=== PATIENT | male | born 1950 | race Caucasian/White ===

== ENCOUNTER → 2017-10-28 | Outpatient (CLI) | payer OTHER, BC | LOC: FCPNEURO 23:41 | PROVIDERS: ATTEND Student in an Organized Health Care Education/Training Program | DX: G47.33 Obstructive sleep apnea (adult) (pediatric) (principal) ==

== ENCOUNTER → 2017-12-02 | Outpatient (CLI) | payer OTHER, BC | LOC: BHFA 13:00 | PROVIDERS: ATTEND Internal Medicine Cardiovascular Disease | DX: R00.2 Palpitations (principal); I25.10 Atherosclerotic heart disease of native coronary artery without angina pectoris ==

== ENCOUNTER → 2017-12-12 | Outpatient (CLI) | payer OTHER, BC | LOC: BHFA 08:30 | PROVIDERS: ATTEND Internal Medicine Cardiovascular Disease | DX: I25.10 Atherosclerotic heart disease of native coronary artery without angina pectoris (principal) ==

== ENCOUNTER → 2017-12-18 | Outpatient (CLI) | payer OTHER, BC | LOC: BHFA 14:00 | PROVIDERS: ATTEND Internal Medicine Cardiovascular Disease | DX: I25.10 Atherosclerotic heart disease of native coronary artery without angina pectoris (principal) | CPT/HCPCS: 78452; 93017; A9500; J2785 ==

== ENCOUNTER → 2018-01-10 | Day surgery (SDC) | payer OTHER, BC ==
[~2018-01-10] MED LIST: ASPIRIN EC 325 MG TAB PO ONE; ATROPINE SULFATE 1 MG/10 ML SYR IVP PRN; DIAZEPAM 5 MG TAB PO ONE; FAMOTIDINE 20 MG TAB PO ONE; HYDROCODONE/APAP 5/325 TAB PO PRN; IOPAMIDOL (ISOVUE-370) 150 ML BTL IV ONE; LIDOCAINE 1% 300 MG/30 ML SDV ONE; MIDAZOLAM 2 MG/2 ML VIAL ONE; NITROGLYCERIN 0.4 MG BTL SL PRN; NS 1,000 ML IV ONE; ONDANSETRON 4 MG/2 ML VIAL IVP PRN; OXYCODONE/APAP 5/325 TAB PO PRN; diphenhydrAMINE 25 MG CAP PO ONE; fentaNYL 100 MCG/2 ML INJ ONE
[2018-01-10 07:14] LABS: PLATELET COUNT 238 10^3/uL (150-400)
--- NOTE | 2018-01-10 07:18 | PDHPUP ---
History & Physical Update H&P update statement: This history and physical update is based on an assessment of the patient which was completed after admission or registration (within 24 hours), but prior to the surgery/procedure. H&P update: H&P reviewed & patient examined, no change in patient's condition since H&P completed
--- NOTE | 2018-01-10 07:18 | PDPROPOC ---
Sedation Plan of Care Sedation Plan of Care: mental status noted, patient educated of risks, benefits , alternatives, patient can tolerate sedation ASA Classification: ASA 2 Planned drugs: fentanyl, midazolam Mallampati Score: Class 2 Mallampati Reference Image: Patient passed 3-3-2 rule?: Yes
[2018-01-10 07:22] LABS: INR 1.02 (0.83-1.16); PROTIME(PATIENT) 13.6 SEC (12.0-15.0)
--- NOTE | 2018-01-10 09:18 | CPIP ---
[f rep st] INVASIVE CARDIAC PROCEDURE DATE OF PROCEDURE: 01/10/2018 INDICATION FOR PROCEDURE: Positive stress test. PROCEDURE: 1. Nonselective right groin sheathogram. 2. Bilateral selective coronary angiography. 3. Left heart catheterization. 4. Left ventriculogram. 5. Right groin closure with 6-Irish Angio-Seal. INDICATION: Briefly, this is a 67-year-old male with a history of prior PCI with numerous stents pete gia. Patient had an outpatient stress test which showed a reduced ejection fraction, which was diffe rent from his baseline echocardiogram. Given the patient's history of multiple recent stents as well as a stress test showing reduced ejection fraction, we decided to proceed with left heart catheteriz ation to make sure his underlying coronary vasculature is patent. DESCRIPTION OF PROCEDURE: After informed consent, patient was brought to [facility] where the right groin w as prepped and draped in sterile fashion. Using local lidocaine, a short 6-Irish sheath was introdu gia in the right common femoral artery, verified angiographically. Through the 6-Irish sheath, the JL4 catheter was advanced to the left coronary artery. Images of the left coronary artery revealed s hort left main. There was a large marginal 1 coming off proximally, which had tubular 50% disease pr oximally, but it was widely patent distally. The circumflex artery proper had extensive stenting in the midbody, which appeared to be widely patent, and terminated into a marginal 2 artery, which was w idely patent with only mild 30% to 40% disease after the stented area. The LAD was stented in its mi dportion, and the stents appeared to be widely patent. The distal LAD appeared to be patent as well. The stent in the proximal LAD appeared to be widely patent. Distally, the LAD appeared to be widel y patent. There appeared to be numerous small diagonal arteries coming off the LAD, which were widel y patent. After these images were obtained, the JL4 catheter was removed. A JR4 catheter was advanced to the right coronary artery. Images of the right coronary artery reveal ed normal os, prox, mid RCA. There was a stent in what appeared to be the RPDA, which appeared to be widely patent. After these images were obtained, the JR4 catheter was removed over the 0.035 wire. A pigtail catheter was advanced in the left ventricle. EDP was 15 mmHg. Left ventriculogram in the IVEY projection showed EF of 50% with evidence of LVH. There was no pullback gradient between the LV and aorta. Pigtail catheter was removed over the 0.035 wire. Right groin was closed with 6-Irish Angio-Seal after changing out for an Amplatz Super Stiff wire over JR4 catheter. Patient tolerated t he procedure well. No complications. IMPRESSION: 1. Patent stents in the left anterior descending, circumflex, and right coronary arteries with moder ate disease in a marginal 1 artery. 2. Low normal ejection fraction with evidence of left ventricular hypertrophy. PLAN: The patient's coronary disease appears to be stable with patent stents. Additionally, his eje ction fraction appears to be stable as well with evidence of LVH. We will continue with aggressive r isk factor modification at this point, i.e., sleep apnea treatment, blood pressure control, as well a s aggressive weight loss regimen with exercise. Will follow up in the office in 1 week's time. /[id number]/MODL
--- NOTE | 2018-01-12 06:21 | CPEKG ---
Heart Rate: 67 RR Interval: 896 P-R Interval: 180 QRSD Interval: 162 QT Interval: 468 QTC Interval: 494 P [place]: 35 QRS [place]: -20 T Wave [place]: 133 EKG Severity - ABNORMAL ECG - EKG Impression: SINUS RHYTHM EKG Impression: LEFT BUNDLE BRANCH BLOCK Electronically Signed By: Van Rizvi 12-Jan-2018 06:20:58
== END | disposition home or self-care (01) ==
LOC: FCATH 06:24
PROVIDERS: ATTEND Internal Medicine Cardiovascular Disease
PROC: 4A023N7 Measurement of Cardiac Sampling and Pressure, Left Heart, Percutaneous Approach (ICD-10-PCS; principal; 2018-01-10)
PROC: B2151ZZ Fluoroscopy of Left Heart using Low Osmolar Contrast (ICD-10-PCS; principal; 2018-01-10)
PROC: B2111ZZ Fluoroscopy of Multiple Coronary Arteries using Low Osmolar Contrast (ICD-10-PCS; principal; 2018-01-10)
DX: I25.10 Atherosclerotic heart disease of native coronary artery without angina pectoris (principal); R94.39 Abnormal result of other cardiovascular function study; R06.00 Dyspnea, unspecified; R00.2 Palpitations; I10 Essential (primary) hypertension; G47.33 Obstructive sleep apnea (adult) (pediatric); I44.7 Left bundle-branch block, unspecified; E11.9 Type 2 diabetes mellitus without complications; N40.0 Benign prostatic hyperplasia without lower urinary tract symptoms; I25.2 Old myocardial infarction; E78.5 Hyperlipidemia, unspecified; E66.01 Morbid (severe) obesity due to excess calories; Z68.41 Body mass index [BMI] 40.0-44.9, adult; Z79.82 Long term (current) use of aspirin; Z79.84 Long term (current) use of oral hypoglycemic drugs; Z82.49 Family history of ischemic heart disease and other diseases of the circulatory system; Z95.5 Presence of coronary angioplasty implant and graft
CPT/HCPCS: C1760; C1769; J1644; J2250; J3010; Q9967

== ENCOUNTER 2018-04-12 15:58 | Emergency (ER) | payer OTHER, BC ==
--- NOTE | 2018-04-12 16:28 | CPEKG ---
Heart Rate: 93 RR Interval: 645 P-R Interval: 196 QRSD Interval: 162 QT Interval: 404 QTC Interval: 503 P [place]: 65 QRS [place]: -8 T Wave [place]: 102 EKG Severity - ABNORMAL ECG - EKG Impression: SINUS RHYTHM EKG Impression: LEFT BUNDLE BRANCH BLOCK Electronically Signed By: Freddie Isbell 12-Apr-2018 17:30:39
--- NOTE | 2018-04-12 16:35 | EDPHY ---
H & P Time Seen by Provider: 04/12/18 16:19 HPI/ROS: Chief complaint. Nausea, dizziness HPI. 67-year-old male presents emergency department with chills that started this morning at about 5:00 a.m.. He was dizzy and nauseated. He had a near syncopal episode. Had some dry heaves. However no chest discomfort or shortness of breath. His abdomen is somewhat distended and tender all over but no diarrhea. No fever as he is aware. No upper respiratory symptoms. The patient checked his blood sugar and found to be 101 and his blood pressure was okay. Continues to have abdominal discomfort. ROS Constitutional. Chills Eyes. no problems with vision ENT. no sore throat, no nasal drainage Cardiovascular. no chest pain Respiratory. no shortness of breath, no cough Abdominal. Abdominal pain with nausea and dry heaves . no problems urinating MS. no calf pain/swelling, no neck/back pain, no joint pain Skin. no rash Lymph. no swollen glands Neuro. Dizziness and near syncope Past Medical/Surgical History: Past medical history is significant for hypertension, AFib, insulin-dependent diabetes, [place] November 2017, dyslipidemia, obesity Social History: , nonsmoker, no alcohol Smoking Status: Never smoked Physical Exam: General Appearance: Alert well-developed male mild distress vital signs the are stable Eyes: Pupils equal and round no pallor or injection. ENT, Mouth: Mucous membranes are moist. Respiratory: There are no retractions, lungs are clear to auscultation. Cardiovascular: Regular rate and rhythm. Gastrointestinal: Abdomen is soft with diffuse tenderness. No masses, normal bowel sounds Neurological: Awake and alert, sensory and motor exams grossly normal. Skin: Warm and dry, no rashes. Musculoskeletal: Neck is supple nontender. Extremities symmetrical, full range of motion. Psychiatric: Patient is oriented X 3, there is no agitation. Constitutional: Initial Vital Signs Temperature (C) 37.0 C 04/12/18 16:03 Heart Rate 93 04/12/18 16:03 Respiratory Rate 20 04/12/18 16:03 Blood Pressure 146/73 H 04/12/18 16:03 O2 Sat (%) 91 L 04/12/18 16:03 O2 Delivery Mode Room Air O2 (L/minute) 3 Allergies/Adverse Reactions: No Known Allergies Allergy (Unverified 12/25/17 11:07) Home Medications: Medication Instructions Recorded Aspirin [Aspirin 81mg (*)] 81 mg PO DAILY 12/25/17 Atorvastatin Calcium [Lipitor 40 80 mg PO DAILY 12/25/17 mg (*)] Clopidogrel Bisulfate [Plavix (*)] 75 mg PO DAILY 12/25/17 Insulin Aspart [Novolog Flexpen] 0 unit SQ TIDMEAL 12/25/17 Insulin Detemir [Levemir] 60 unit SQ DAILY 12/25/17 Losartan Potassium [Cozaar 50 mg 100 mg PO DAILY 12/25/17 (*)] Metoprolol Tartrate [Lopressor 100 100 mg PO BID 12/25/17 mg (*)] Sertraline HCl [Zoloft 100mg (*)] 100 mg PO DAILY 12/25/17 Spironolactone [Aldactone 25 MG 100 mg PO DAILY 12/25/17 (*)] metFORMIN HCL [Glucophage 500 mg 500 mg PO BIDMEAL 12/25/17 (*)] Medical Decision Making - Diagnostics EKG Interpretation: EKG interpreted by me shows normal sinus rhythm normal interval. Left bundle branch block. QRS shows interventricular conduction delay. ST depression in V6. Rate is 93. Otherwise no significant change from previous EKG December 2017 . No arrhythmia. No change Imaging Results: Imaging Impressions Chest X-Ray 04/12/18 16:38 Impression: Query airways disease. Abdomen CT 04/12/18 17:10 Impression: 1. 3.3 cm suspicious solid lesion of the left kidney. Additional rounded areas of low attenuation in the left kidney are probably cysts. Urologic consultation is recommended for consideration of further evaluation. 2. See above report for additional findings. Results called and discussed with JAYLAN OCHOA M.D. on 04/12/2018 at 18:42 Chest x-ray interpreted by me shows no evidence for pneumonia CT abdomen pelvis with IV contrast shows normal gallbladder, appendix. No diverticulosis. No source for abdominal pain. He has an incidental finding of a 3.3 cm mass in the left kidney that needs further evaluation. Procedures: IV normal saline, monitor. Zofran for nausea ED Course/Re-evaluation: Re-evaluation 6:40 p.m.--patient is stable and he feels much better. The patient and I discussed imaging and lab an EKG results. We discussed treatment plan including criteria for return importance of follow-up further evaluation. He expresses understanding and agreement We discussed incidental finding of mass in the left kidney. I consulted discussed case with Dr. Rod Morales for Urology who will see the patient in the office this coming week. Differential Diagnosis: This may be gastroenteritis. There is no acute findings for explanation of abdominal pain and nausea. Does have an elevated white count but normal gallbladder and appendix and no evidence for diverticulosis or bowel obstruction. There is an incidental finding of probable cancerous mass in the left kidney - Data Points Laboratory Results: Laboratory Results 04/12/18 16:00 04/12/18 16:00 04/12/18 04/12/18 04/12/18 16:00 16:00 14:30 WBC 15.05 10^3/uL H 10^3/uL (3.80-9.50) RBC 5.56 10^6/uL 10^6/uL (4.40-6.38) Hgb 16.1 g/dL g/dL (13.7-17.5) Hct 47.4 % % (40.0-51.0) MCV 85.3 fL fL (81.5-99.8) MCH 29.0 pg pg (27.9-34.1) MCHC 34.0 g/dL g/dL (32.4-36.7) RDW 13.3 % % (11.5-15.2) Plt Count 165 10^3/uL 10^3/uL (150-400) MPV 9.5 fL fL (8.7-11.7) Neut % (Auto) 89.8 % H % (39.3-74.2) Lymph % (Auto) 3.4 % L % (15.0-45.0) [place] % (Auto) 5.8 % % (4.5-13.0) Eos % (Auto) 0.2 % L % (0.6-7.6) Baso % (Auto) 0.3 % % (0.3-1.7) Nucleat RBC Rel Count 0.0 % % (0.0-0.2) Absolute Neuts (auto) 13.51 10^3/uL H 10^3/uL (1.70-6.50) Absolute Lymphs (auto) 0.51 10^3/uL L 10^3/uL (1.00-3.00) Absolute Monos (auto) 0.87 10^3/uL H 10^3/uL (0.30-0.80) Absolute Eos (auto) 0.03 10^3/uL 10^3/uL (0.03-0.40) Absolute Basos (auto) 0.05 10^3/uL 10^3/uL (0.02-0.10) Absolute Nucleated RBC 0.00 10^3/uL 10^3/uL (0-0.01) Immature Gran % 0.5 % % (0.0-1.1) Immature Gran # 0.08 10^3/uL 10^3/uL (0.00-0.10) RBC/WBC/PLT Morphology TNP Platelet Estimate TNP Sodium 137 mEq/L mEq/L (135-145) Potassium 4.5 mEq/L mEq/L (3.3-5.0) Chloride 101 mEq/L mEq/L (97-110) Carbon Dioxide 26 mEq/l mEq/l (22-31) Anion Gap 10 mEq/L mEq/L (8-16) BUN 16 mg/dL mg/dL (7-23) Creatinine 0.9 mg/dL mg/dL (0.7-1.3) Estimated GFR > 60 Glucose 158 mg/dL H mg/dL (70-100) Calcium 9.2 mg/dL mg/dL (8.5-10.4) Troponin I 0.014 ng/mL ng/mL (0.000-0.034) Lipase 94 IU/L IU/L (23-300) Urine Color Urine Appearance Urine pH Ur Specific [place] Urine Protein Urine Ketones Urine Blood Urine Nitrate Urine Bilirubin Urine Urobilinogen Ur Leukocyte Esterase Urine RBC Urine WBC Ur Epithelial Cells Urine Glucose 04/12/18 13:10 WBC RBC Hgb Hct MCV MCH MCHC RDW Plt Count MPV Neut % (Auto) Lymph % (Auto) [place] % (Auto) Eos % (Auto) Baso % (Auto) Nucleat RBC Rel Count Absolute Neuts (auto) Absolute Lymphs (auto) Absolute Monos (auto) Absolute Eos (auto) Absolute Basos (auto) Absolute Nucleated RBC Immature Gran % Immature Gran # RBC/WBC/PLT Morphology Platelet Estimate Sodium Potassium Chloride Carbon Dioxide Anion Gap BUN Creatinine Estimated GFR Glucose Calcium Troponin I Lipase Urine Color YELLOW Urine Appearance CLEAR Urine pH 5.0 (5.0-7.5) Ur Specific [place] 1.021 (1.002-1.030) Urine Protein NEGATIVE (NEGATIVE) Urine Ketones NEGATIVE (NEGATIVE) Urine Blood 1+ H (NEGATIVE) Urine Nitrate NEGATIVE (NEGATIVE) Urine Bilirubin NEGATIVE (NEGATIVE) Urine Urobilinogen NEGATIVE EU EU (0.2-1.0) Ur Leukocyte Esterase NEGATIVE (NEGATIVE) Urine RBC 1-3 /hpf /hpf (0-3) Urine WBC 1-3 /hpf /hpf (0-3) Ur Epithelial Cells NONE SEEN /lpf /lpf (NONE-1+) Urine Glucose NEGATIVE (NEGATIVE) Medications Given: Discontinued Medications Sodium Chloride (Ns) 1,000 mls @ 0 mls/hr IV EDNOW ONE; Wide Open PRN Reason: Protocol Stop: 04/12/18 16:38 Last Admin: 04/12/18 16:46 Dose: 1,000 mls Ondansetron HCl (Zofran) 4 mg IVP EDNOW ONE Stop: 04/12/18 16:46 Last Admin: 04/12/18 16:46 Dose: 4 mg Departure - Departure Disposition: Home, Routine, Self-Care Clinical Impression: Abdominal pain Qualifiers: Abdominal location: generalized Qualified Code(s): R10.84 - Generalized abdominal pain Condition: Good Instructions: Acute Abdominal Pain (ED) Additional Instructions: Frequent, small sips fluids. Gradual diet advancement Zofran if needed for nausea using 1 pill every 4 hr for nausea. Return for worsening abdominal pain, fever, chest discomfort, trouble breathing. Recheck in 1-2 days for continuing symptoms Call Dr. Morales is a office on Saturday to schedule further evaluation of a 3.3 cm mass in the left kidney Referrals: Jacqui Leonardo MD [Primary Care Provider] - 1 day, if not improved Crwo Morales MD [Medical Doctor] - As per Instructions
[2018-04-12] MEDS ORDERED: NS 1,000 ML IV ONE (16:37)
[2018-04-12 16:39] LABS: PLATELET COUNT 165 10^3/uL (150-400)
[2018-04-12] MEDS ORDERED: ONDANSETRON 4 MG/2 ML VIAL ONE (16:44)
[2018-04-12] MEDS ORDERED: ONDANSETRON 4 MG/2 ML VIAL IVP ONE (16:45)
[2018-04-12] MEDS ORDERED: IOPAMIDOL (ISOVUE-300) 100 ML BTL ONE (17:16)
[2018-04-12 19:26] VITALS: BP 126/70
[2018-04-12] MEDS ORDERED: ONDANSETRON 4MG PREPACK#2 BTL TAKEHOME ONE (19:41)
== END 2018-04-12 19:51 | disposition home or self-care (01) ==
DX: R10.84 Generalized abdominal pain (principal); E86.9 Volume depletion, unspecified; I10 Essential (primary) hypertension; E11.9 Type 2 diabetes mellitus without complications; Z79.4 Long term (current) use of insulin; Z79.82 Long term (current) use of aspirin
CPT/HCPCS: 71045; 74177; 93005; 96361; 96374; 99285; J2405; Q9967

== ENCOUNTER 2018-09-08 14:01 | Inpatient (IN) | payer OTHER, BC ==
[2018-09-08] MEDS ORDERED: ASPIRIN 81 MG CHEWABLE TAB PO ONE (14:37)
--- NOTE | 2018-09-08 14:41 | EDPHY ---
H & P Time Seen by Provider: 09/08/18 14:13 HPI/ROS: CHIEF COMPLAINT: Shortness of breath, bloating HISTORY OF PRESENT ILLNESS: Patient is a 67-year-old male with a history of hypertension, diabetes and coronary artery disease presents emergency department multiple complaints. Patient is currently complaining of shortness of breath, bloating and hypertension. The patient states that in December he was in [facility] and diagnosed with a renal mass. He subsequently had this removed June 2018 at [facility]. Per his report, there was a complication in the neck to renal artery. This caused him to have a 2nd procedure in surgery. While in the hospital as medications were changed. Once discharged he discontinued aspirin, Plavix and spironolactone. The patient states that previously spironolactone appeared to control his blood pressure best. Patient states that 2 days ago he started he uses BiPAP machine again. This was the 1st time he used it since being discharged from the hospital. Since using the machine he has had increasing shortness of breath during the day. He feels generalized bloating. He has bilateral pedal edema which is worse than baseline. He has no chest pain. No leg pain. No fevers or chills. No cough. REVIEW OF SYSTEMS: 10 systems were reveiwed and are negative with the exception of the elements mentioned in the history of present illness. 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 HEENT: Eyes normal to inspection, normal pharynx, no signs of dehydration. NECK: Normal, supple. RESPIRATORY: Clear to auscultation bilaterally, no rales, rhonchi or wheezing. CVS: Regular rate and rhythm, no rubs, murmurs, or gallops. ABDOMEN: Soft, nontender, nondistended, no organomegaly. BACK: Normal to inspection, no CVA tenderness. SKIN: Normal color, no rash, warm, dry. No pallor. EXTREMITIES: Bilateral mild pedal edema, no calf tenderness, no Homans sign or cords, no joint swelling. NEURO/PSYCH: Alert and oriented, normal mood and affect, normal motor sensory exam. No obvious cranial nerve deficit. Constitutional: Initial Vital Signs Temperature (C) 37.2 C 09/08/18 14:01 Heart Rate 71 09/08/18 14:01 Respiratory Rate 16 09/08/18 14:01 Blood Pressure 229/116 H 09/08/18 14:01 O2 Sat (%) 95 09/08/18 14:01 O2 Delivery Mode Room Air Allergies/Adverse Reactions: No Known Allergies Allergy (Unverified 12/25/17 11:07) Home Medications: Medication Instructions Recorded Aspirin [Aspirin 81mg (*)] 81 mg PO DAILY 12/25/17 Atorvastatin Calcium [Lipitor 40 80 mg PO DAILY 12/25/17 mg (*)] Clopidogrel Bisulfate [Plavix (*)] 75 mg PO DAILY 12/25/17 Insulin Aspart [Novolog Flexpen] 0 unit SQ TIDMEAL 12/25/17 Insulin Detemir [Levemir] 60 unit SQ DAILY 12/25/17 Losartan Potassium [Cozaar 50 mg 100 mg PO DAILY 12/25/17 (*)] Metoprolol Tartrate [Lopressor 100 100 mg PO BID 12/25/17 mg (*)] Sertraline HCl [Zoloft 100mg (*)] 100 mg PO DAILY 12/25/17 Spironolactone [Aldactone 25 MG 100 mg PO DAILY 12/25/17 (*)] metFORMIN HCL [Glucophage 500 mg 500 mg PO BIDMEAL 12/25/17 (*)] Medical Decision Making - Diagnostics Imaging Results: Imaging Impressions Chest X-Ray 09/08/18 14:42 Impression: Bronchitis versus viral pneumonitis. ED Course/Re-evaluation: In the emergency I discussed possible etiologies with the patient. I answered all his questions. Laboratory studies, EKG, chest x-ray were obtained. Patient was given aspirin 324 mg orally. EKG shows normal sinus rhythm, normal rate, left bundle branch block. Patient was given labetalol 10 mg IV. 1454: Patient's white count is normal. Patient is mildly anemic. Chemistry panel and BNP is pending. Troponin is negative. I rechecked the patient. He was stable. Patient's chemistry panel is notable for normal renal function. His BNP is elevated at 4700. I discussed case with Dr. Sotelo from the hospitalist service. A CT with IV contrast was ordered of the abdomen pelvis. I discussed this with the patient. I answered his questions. Dr. Sotelo will admit the patient. Patient is stable. He will go directly from the ER to the CT scanner and then up stairs to his room. Differential Diagnosis: My differential includes but is not limited to ACS, acute [place], dysrhythmia, CHF, hypertensive emergency, hypertensive urgency, renal insufficiency, renal failure , urinary tract infection, pyelonephritis, electrolyte abnormality, sugar abnormality, obstructive sleep apnea Critical Care Time: The patient required 35 min of critical care time. This was exclusive of any unbundled procedure. This was due the patient's hypertension, heart failure, rechecks, consultation with the hospitalist service. The patient received labetalol 10 mg IV in the emergency department for his hypertension. - Data Points Laboratory Results: Laboratory Results 09/08/18 14:25 09/08/18 14:25 09/08/18 09/08/18 09/08/18 14:33 14:25 14:25 WBC RBC Hgb Hct MCV MCH MCHC RDW Plt Count MPV Neut % (Auto) Lymph % (Auto) [place] % (Auto) Eos % (Auto) Baso % (Auto) Nucleat RBC Rel Count Absolute Neuts (auto) Absolute Lymphs (auto) Absolute Monos (auto) Absolute Eos (auto) Absolute Basos (auto) Absolute Nucleated RBC Immature Gran % Immature Gran # PT 14.0 SEC SEC (12.0-15.0) INR 1.06 (0.83-1.16) APTT 29.5 SEC SEC (23.0-38.0) Sodium Potassium Chloride Carbon Dioxide Anion Gap BUN Creatinine Estimated GFR Glucose Calcium POC Troponin I 0.03 ng/mL ng/mL (0.00-0.08) NT-Pro-B Natriuret Pep 4740 pg/mL H pg/mL (0-125) 09/08/18 09/08/18 14:25 14:25 WBC 9.08 10^3/uL 10^3/uL (3.80-9.50) RBC 4.21 10^6/uL L 10^6/uL (4.40-6.38) Hgb 10.9 g/dL L g/dL (13.7-17.5) Hct 34.5 % L % (40.0-51.0) MCV 81.9 fL fL (81.5-99.8) MCH 25.9 pg L pg (27.9-34.1) MCHC 31.6 g/dL L g/dL (32.4-36.7) RDW 14.1 % % (11.5-15.2) Plt Count 261 10^3/uL 10^3/uL (150-400) MPV 9.7 fL fL (8.7-11.7) Neut % (Auto) 77.6 % H % (39.3-74.2) Lymph % (Auto) 14.4 % L % (15.0-45.0) [place] % (Auto) 6.2 % % (4.5-13.0) Eos % (Auto) 1.1 % % (0.6-7.6) Baso % (Auto) 0.4 % % (0.3-1.7) Nucleat RBC Rel Count 0.0 % % (0.0-0.2) Absolute Neuts (auto) 7.04 10^3/uL H 10^3/uL (1.70-6.50) Absolute Lymphs (auto) 1.31 10^3/uL 10^3/uL (1.00-3.00) Absolute Monos (auto) 0.56 10^3/uL 10^3/uL (0.30-0.80) Absolute Eos (auto) 0.10 10^3/uL 10^3/uL (0.03-0.40) Absolute Basos (auto) 0.04 10^3/uL 10^3/uL (0.02-0.10) Absolute Nucleated RBC 0.00 10^3/uL 10^3/uL (0-0.01) Immature Gran % 0.3 % % (0.0-1.1) Immature Gran # 0.03 10^3/uL 10^3/uL (0.00-0.10) PT INR APTT Sodium 141 mEq/L mEq/L (135-145) Potassium 3.8 mEq/L mEq/L (3.3-5.0) Chloride 105 mEq/L mEq/L (97-110) Carbon Dioxide 28 mEq/l mEq/l (22-31) Anion Gap 8 mEq/L mEq/L (6-14) BUN 12 mg/dL mg/dL (7-23) Creatinine 0.7 mg/dL mg/dL (0.7-1.3) Estimated GFR > 60 Glucose 179 mg/dL H mg/dL (70-100) Calcium 9.1 mg/dL mg/dL (8.5-10.4) POC Troponin I NT-Pro-B Natriuret Pep Medications Given: Discontinued Medications Aspirin (Aspirin) 324 mg PO EDNOW ONE Stop: 09/08/18 14:38 Last Admin: 09/08/18 14:46 Dose: 324 mg Labetalol HCl (Trandate Injection) 10 mg IVP EDNOW ONE Stop: 09/08/18 14:45 Last Admin: 09/08/18 15:01 Dose: 10 mg Point of Care Test Results: Chemistry 09/08/18 14:33 POC Troponin I 0.03 ng/mL ng/mL (0.00-0.08) Departure - Departure Disposition: [facility] Inpatient Acute Clinical Impression: Shortness of breath, Hypertensive urgency Condition: Good
[2018-09-08 14:42] LABS: PLATELET COUNT 261 10^3/uL (150-400)
[2018-09-08] MEDS ORDERED: LABETALOL HCL 5 MG/ML 20 ML MDV IVP ONE (14:44)
[2018-09-08 14:59] LABS: INR 1.06 (0.83-1.16)
[2018-09-08] MEDS ORDERED: ONDANSETRON DISINTEGRATING 4 MG TAB PO PRN (16:02)
[2018-09-08] MEDS ORDERED: ONDANSETRON 4 MG/2 ML VIAL IVP PRN (16:02)
--- NOTE | 2018-09-08 16:30 | PDGENHP ---
History and Physical - Chief Complaint Elevated blood pressure - History of Present Illness Mr. Crow Norris is a 67 yo male with a PMHx of HTN, CAD s/p 3 stents, Renal mass s/p recent resection with hospital course complicated by UTI, C Diff, hematuria who presents to [facility] for elevated BP. Patient reports that for the past few days his BP has been elevated to 200/100's. He reports he was taken off of his home Spironolactone at the time of his hospitalization at the end of Jul. He recalls he was told he has an elevated aldosterone level and was placed on Spironolactone for this. He also reports SOB with productive cough of clear sputum for the past few days as well. He denies any chest pain, edema, hematuria, f/c, n/v, d/c. History Information - Allergies/Home Medication List Allergies/Adverse Reactions: No Known Allergies Allergy (Unverified 12/25/17 11:07) Home Medications: Aspirin [Aspirin 81mg (*)] 81 mg PO DAILY 12/25/17 [Last Taken Unknown] Atorvastatin Calcium [Lipitor 40 mg (*)] 80 mg PO DAILY 12/25/17 [Last Taken Unknown] Clopidogrel Bisulfate [Plavix (*)] 75 mg PO DAILY 12/25/17 [Last Taken Unknown] Insulin Aspart [Novolog Flexpen] 0 unit SQ TIDMEAL 12/25/17 [Last Taken Unknown] Insulin Detemir [Levemir] 60 unit SQ DAILY 12/25/17 [Last Taken Unknown] Losartan Potassium [Cozaar 50 mg (*)] 100 mg PO DAILY 12/25/17 [Last Taken Unknown] Metoprolol Tartrate [Lopressor 100 mg (*)] 100 mg PO BID 12/25/17 [Last Taken Unknown] Sertraline HCl [Zoloft 100mg (*)] 100 mg PO DAILY 12/25/17 [Last Taken Unknown] Spironolactone [Aldactone 25 MG (*)] 100 mg PO DAILY 12/25/17 [Last Taken Unknown] metFORMIN HCL [Glucophage 500 mg (*)] 500 mg PO BIDMEAL 12/25/17 [Last Taken Unknown] I have personally reviewed and updated: family history, medical history, social history, surgical history - Past Medical History coronary artery disease, cancer, hypertension - Surgical History Additional surgical history: Partial Nephrectomy 07/2018 - Family History Positive for: non-pertinent - Social History Smoking Status: Never smoked Review of Systems Review of Systems: ROS: 10pt was reviewed & negative except for what was stated in HPI & below Physical Exam Physical Exam: Temp Pulse Resp BP Pulse Ox 37.2 C 76 18 199/84 H 94 09/08/18 14:01 09/08/18 16:10 09/08/18 16:10 09/08/18 16:10 09/08/18 16:10 Constitutional: no apparent distress Eyes: PERRL Ears, Nose, Mouth, Throat: moist mucous membranes Cardiovascular: regular rate and rhythym Respiratory: no respiratory distress, clear to auscultation Gastrointestinal: soft, non-tender abdomen Genitourinary: no bladder fullness Skin: warm Musculoskeletal: full muscle strength Neurologic: AAOx3 Psychiatric: interacting appropriately Lab Data & Imaging Review 09/08/18 14:25 09/08/18 14:25 WBC 9.08 10^3/uL (3.80-9.50) 09/08/18 14:25 RBC 4.21 10^6/uL (4.40-6.38) L 09/08/18 14:25 Hgb 10.9 g/dL (13.7-17.5) L 09/08/18 14:25 Hct 34.5 % (40.0-51.0) L 09/08/18 14:25 MCV 81.9 fL (81.5-99.8) 09/08/18 14:25 MCH 25.9 pg (27.9-34.1) L 09/08/18 14:25 MCHC 31.6 g/dL (32.4-36.7) L 09/08/18 14:25 RDW 14.1 % (11.5-15.2) 09/08/18 14:25 Plt Count 261 10^3/uL (150-400) 09/08/18 14:25 MPV 9.7 fL (8.7-11.7) 09/08/18 14:25 Neut % (Auto) 77.6 % (39.3-74.2) H 09/08/18 14:25 Lymph % (Auto) 14.4 % (15.0-45.0) L 09/08/18 14:25 [place] % (Auto) 6.2 % (4.5-13.0) 09/08/18 14:25 Eos % (Auto) 1.1 % (0.6-7.6) 09/08/18 14:25 Baso % (Auto) 0.4 % (0.3-1.7) 09/08/18 14:25 Nucleat RBC Rel Count 0.0 % (0.0-0.2) 09/08/18 14:25 Absolute Neuts (auto) 7.04 10^3/uL (1.70-6.50) H 09/08/18 14:25 Absolute Lymphs (auto) 1.31 10^3/uL (1.00-3.00) 09/08/18 14:25 Absolute Monos (auto) 0.56 10^3/uL (0.30-0.80) 09/08/18 14:25 Absolute Eos (auto) 0.10 10^3/uL (0.03-0.40) 09/08/18 14:25 Absolute Basos (auto) 0.04 10^3/uL (0.02-0.10) 09/08/18 14:25 Absolute Nucleated RBC 0.00 10^3/uL (0-0.01) 09/08/18 14:25 Immature Gran % 0.3 % (0.0-1.1) 09/08/18 14:25 Immature Gran # 0.03 10^3/uL (0.00-0.10) 09/08/18 14:25 PT 14.0 SEC (12.0-15.0) 09/08/18 14:25 INR 1.06 (0.83-1.16) 09/08/18 14:25 APTT 29.5 SEC (23.0-38.0) 09/08/18 14:25 Sodium 141 mEq/L (135-145) 09/08/18 14:25 Potassium 3.8 mEq/L (3.3-5.0) 09/08/18 14:25 Chloride 105 mEq/L (97-110) 09/08/18 14:25 Carbon Dioxide 28 mEq/l (22-31) 09/08/18 14:25 Anion Gap 8 mEq/L (6-14) 10/22/18 14:25 BUN 12 mg/dL (7-23) 09/08/18 14:25 Creatinine 0.7 mg/dL (0.7-1.3) 09/08/18 14:25 Estimated GFR > 60 09/08/18 14:25 Glucose 179 mg/dL (70-100) H 09/08/18 14:25 Calcium 9.1 mg/dL (8.5-10.4) 09/08/18 14:25 POC Troponin I 0.03 ng/mL (0.00-0.08) 09/08/18 14:33 NT-Pro-B Natriuret Pep 4740 pg/mL (0-125) H 09/08/18 14:25 Visualized and Interpreted Chest x-ray results: Yes Chest X-Ray results: no infiltrate Visualized and Interpreted EKG results: Yes EKG Interpretation: Positive for: NS ST wave abnormalities Assessment & Plan Assessment: Hypertensive urgency (Acute) - BP on admission >200/100, reports similar BP at home for past few days - Was taken off of Spironolactone at the end of Jul at time of hospital discharge, reports hx of hyperaldosteronism - S/p 10 mg IV Labetalol in ED, BP improved to 190/100 - Will restart home antihypertensives including Losartan 100 mg qd, Metoprolol 100 mg BID - Reinitiate Spironolactone at lower dose 50 mg qd (Was previously on 100 mg qd) - Will order Hydralazine PRN for SBP >200 Viral URI (Acute) - Reports recent SOB with cough - CXR shows peribronchial thickening, likely representing bronchitis - Will manage with symptom management, antitussive and mucolytic CAD s/p 3 Stents - Denies chest pain, Trop negative on admission - Was taken off of Plavix and ASA at last hospital d/c due to bleeding, last stent 2 years ago - Has f/u with Supervisor Lime Dr. Diop in 1 week at home in [place], [place] - Will continue to hold ASA/Plavix for now T2DM - Hold home Metformin - Will order SSI, on short acting insulin at home - Was also previously on Lantus, but d/c at last hospitalization - Continue to monitor BG Renal Mass - S/p resection in 07/2018 at [facility] - Course complicated by bleeding, UTI, C Diff - CT w and w/o contrast pending, ordered by ED to evaluate post-surgical changes - Follows with Urology, Dr. Morales FEN: Regular diet, PRN DVT PPx: SCDs, hold on AC given recent bleed Code: FULL Dispo: Admit to Observation
[2018-09-08] MEDS ORDERED: guaiFENesin/CODEINE PHOS 10 ML UDCUP PO PRN (16:39)
[2018-09-08] MEDS ORDERED: IOPAMIDOL (ISOVUE-300) 100 ML BTL ONE (16:56)
[2018-09-08] MEDS ORDERED: D50W 25 GM/50 ML SYR IVP PRN (16:58)
[2018-09-08] MEDS: LOSARTAN POTASSIUM 50 MG TAB PO SCH (18:46)
[2018-09-08] MEDS: SPIRONOLACTONE 50 MG TAB PO SCH (18:47)
[2018-09-08] MEDS: METOPROLOL TARTRATE 100 MG TAB PO SCH (21:54)
[2018-09-08] MEDS: INSULIN LISPRO 100 UNIT/ML SC SCH (21:55)
--- NOTE | 2018-09-08 21:57 | CPEKG ---
Test Reason : OPEN Blood Pressure : / mmHG Vent. Rate : 066 BPM Atrial Rate : 067 BPM P-R Int : 164 ms QRS Dur : 169 ms QT Int : 509 ms P-R-T Axes : 029 -01 106 degrees QTc Int : 534 ms Sinus rhythm Left bundle branch block Confirmed by Roxana Hernandez ([id number]) on 09/08/2018 9:56:59 PM Referred By: Confirmed By:Roxana Hernandez
[2018-09-08] MEDS ORDERED: IOPAMIDOL (ISOVUE 370) 100 ML BTL IV ONE (23:57)
[2018-09-09] MEDS ORDERED: NS 1,000 ML IV SCH (05:00)
[2018-09-09] MEDS: ATORVASTATIN CALCIUM 40 MG TAB PO SCH (08:53)
[2018-09-09] MEDS: LOSARTAN POTASSIUM 50 MG TAB PO SCH (08:54)
[2018-09-09] MEDS: SPIRONOLACTONE 50 MG TAB PO SCH (08:54)
[2018-09-09] MEDS: SERTRALINE HCL 100 MG TAB PO SCH (08:54)
[2018-09-09] MEDS: METOPROLOL TARTRATE 100 MG TAB PO SCH ×2 (08:54→21:13)
[2018-09-09] MEDS: INSULIN LISPRO 100 UNIT/ML SC SCH ×3 (08:58→18:29)
[2018-09-09] MEDS ORDERED: ENOXAPARIN 40 MG/0.4 ML SYR SC SCH (09:00)
--- NOTE | 2018-09-09 15:12 | ASMTCMCOM ---
CM Note CM Note Notes: Pt is a 60 y/o male who presented to the ED with a hypertensive emergency. He has a medically significant hx of diabetes, CAD s/p 3 stents, renal mass s/p resection with complications. He is originally from [place], but has been living with his son, [id number] and grandchildren since having a heart attack when he was visiting last June. He reports being able to get around independently in the home and having his [id number] assistance with transportation, "she takes good care of me". PT is recommedning home care. A referral was made to [facility]. CM will follow if additional CM needs are identified. D/C Plan: [facility] for PT/OT Date Signed: 09/09/2018 03:11 PM Electronically Signed By:Acacia Conner
--- NOTE | 2018-09-09 18:41 | HOSPPROG ---
Hospitalist Progress Note Assessment/Plan: 67yo M presented with severely elevated BP after having multiple anti- hypertensives (harjeet, amlodipine) stopped after recent hospitalization for ABLA. #Hypertensive urgency: Manifested as mild pulm edema. Reportedly carries diagnosis of hyperaldosteronism. - BP coming down slowly, goal SBP <160 by tomorrow AM - Continue losartan 100, metop 100 BID, harjeet 50 qd - Stop IVF. Plan to diurese but will hold for now given recent contrast bolus and re-initiation or MRA - Hydral prn for SBP>190 #Anemia: Hgb up a bit from last check. Had ABLA related to procedural complication after renal mass resection now s/p IR intervention. - Monitor #CAD: S/p 3 stents, most recently 2016. - Off aspirin and plavix. Per PCP notes has had much difficulty re- initiating due to bleeding. Plan to hold until early September - On statin, BB #T2DM: - Restart levemir (patient will use own pen) at 30u BID (half dose from home) , continue SSI with achs BG checks #Renal cell cancer: S/p resection with clean margins. Urologist is Dr Morales. #H/o C diff colitis: S/p course of treatment. No sxs currently. Diet: regular VTE ppx: SCDs Code: full Dispo: Change to inpatient for ongoing BP management Subjective: Feeling better this AM. No chest pain, vision changes, headaches, changes in urination. He does note some dyspnea with exertion. No blood in urine. Objective: Vital Signs Temp Pulse Resp BP Pulse Ox 37.1 C 79 20 195/82 H 91 L 09/09/18 16:00 09/09/18 16:00 09/09/18 16:00 09/09/18 16:00 09/09/18 16:00 09/08/18 09/09/18 09/10/18 05:59 05:59 05:59 Intake Total 500 1765 Output Total 200 925 Balance 300 840 PT 14.0 SEC (12.0-15.0) 09/08/18 14:25 INR 1.06 (0.83-1.16) 09/08/18 14:25 - Physical Exam Constitutional: no apparent distress, appears nourished, not in pain, obese Eyes: PERRL, anicteric sclera, EOMI Ears, Nose, Mouth, Throat: moist mucous membranes, hearing normal, ears appear normal, no oral mucosal ulcers Cardiovascular: regular rate and rhythym, no murmur, rub, or gallop, edema ( trace in BLE), No JVD Respiratory: reduced air movement (mild at bilateral bases) Gastrointestinal: normoactive bowel sounds, soft, non-tender abdomen, no palpable masses Genitourinary: no bladder fullness, no bladder tenderness, no renal bruits Skin: no rashes or abrasions, no fluctuance, no induration Musculoskeletal: full muscle strength, no muscle tenderness, normal joint ROM Neurologic: AAOx3, sensation intact bilaterally Psychiatric: interacting appropriately, not anxious, not encephalopathic, thought process linear ICD10 Worksheet Patient Problems: Problems Problem Status Onset Hypertensive urgency Acute Shortness of breath Acute
[2018-09-09] MEDS: ACETAMINOPHEN 325 MG TAB PO PRN (21:17)
[2018-09-10] MEDS: hydrALAZINE 20 MG/ML VIAL IVP PRN ×3 (06:01→19:55)
[2018-09-10] MEDS: LOSARTAN POTASSIUM 50 MG TAB PO SCH (08:33)
[2018-09-10] MEDS: METOPROLOL TARTRATE 100 MG TAB PO SCH ×2 (08:33→22:06)
[2018-09-10] MEDS: SERTRALINE HCL 100 MG TAB PO SCH (08:33)
[2018-09-10] MEDS: ATORVASTATIN CALCIUM 40 MG TAB PO SCH (08:33)
[2018-09-10] MEDS: SPIRONOLACTONE 50 MG TAB PO SCH (08:34)
[2018-09-10] MEDS: INSULIN LISPRO 100 UNIT/ML SC SCH ×2 (09:14→17:10)
[2018-09-10] MEDS: LEVEMIR 30 UNIT SC SCH ×2 (09:30→21:30)
--- NOTE | 2018-09-10 10:16 | PDMN ---
Medical Necessity Medical necessity: Change to IP as of 09/09/2018 per and MCG M-197; los > 2 mn for ongoing management of persistent hypertensive urgency (BP 201/94); requiring further monitoring, med management; comorbids CHF, DM, renal cell CA, CAD, anemia
[2018-09-10] MEDS ORDERED: FUROSEMIDE 40 MG/4 ML VIAL IVP ONE (12:13)
--- NOTE | 2018-09-10 12:20 | HOSPPROG ---
Hospitalist Progress Note Assessment/Plan: 67yo M presented with severely elevated BP after having multiple anti- hypertensives (harjeet, amlodipine) stopped after recent hospitalization for ABLA. #Hypertensive urgency: Manifested as mild pulm edema. Reportedly carries diagnosis of hyperaldosteronism. - Give Lasix 40mg IV - Continue losartan 100, metop 100 BID, harjeet 50 qd - Hydral prn for SBP>190 -check Renal US -consider CCB tomorrow. He refused today #Anemia: Hgb up a bit from last check. Had ABLA related to procedural complication after renal mass resection now s/p IR intervention. - Monitor #CAD: S/p 3 stents, most recently 2015. - Off aspirin and plavix. Per PCP notes has had much difficulty re- initiating due to bleeding. Plan to hold until early September - On statin, BB #T2DM: - Restart levemir (patient will use own pen) at 30u BID (half dose from home) , continue SSI with achs BG checks #Renal cell cancer: S/p resection with clean margins. Urologist is Dr Morales. #H/o C diff colitis: S/p course of treatment. No sxs currently. Diet: regular VTE ppx: SCDs Code: full Plan: The pt's BP remains critically high in the 200's. He reports it is typically in the 130's systolic range. Will diurese per above Did attempt to also add CCB and he refused check renal US cont to hold Plavix and Aspirin given his hx of bleeding per above Check TSH cont inpatient total critical care time spent on this pt with sever HTN with urgency is 35 mins. Seen twice. D/w pharmacy, nursing, CM at bedside. Subjective: no focal neuro deficits. no visiual deficits. no BERNAL. BP 213/94 this morning. Objective: Vital Signs Temp Pulse Resp BP Pulse Ox 36.6 C 75 18 192/77 H 94 09/10/18 11:25 09/10/18 11:25 09/10/18 11:25 09/10/18 11:25 09/10/18 11:25 09/09/18 09/10/18 09/11/18 05:59 05:59 05:59 Intake Total 1425 Output Total 1150 1000 Balance 275 -1000 PT 14.0 SEC (12.0-15.0) 09/08/18 14:25 INR 1.06 (0.83-1.16) 09/08/18 14:25 - Physical Exam Constitutional: no apparent distress Eyes: PERRL Ears, Nose, Mouth, Throat: moist mucous membranes, hearing normal Cardiovascular: regular rate and rhythym, no murmur, rub, or gallop, edema (2+ LE edema) Respiratory: no respiratory distress, no rales or rhonchi, clear to auscultation Gastrointestinal: normoactive bowel sounds Skin: warm Neurologic: AAOx3 Psychiatric: interacting appropriately, not anxious, not encephalopathic Lymph, Heme, Immunologic: No petechiae ICD10 Worksheet Patient Problems: Problems Problem Status Onset Hypertensive urgency Acute Shortness of breath Acute
[2018-09-10] MEDS: Insulin Aspart [Novolog Flexpen] 0 UNIT SQ SCH ×3 (14:25→20:01)
[2018-09-10] MEDS: ACETAMINOPHEN 325 MG TAB PO PRN (19:56)
[2018-09-11 04:52] LABS: PLATELET COUNT 222 10^3/uL (150-400)
[2018-09-11] MEDS ORDERED: POTASSIUM CL 20 MEQ/15 ML UDCUP PO ONE (05:34)
[2018-09-11] MEDS: hydrALAZINE 20 MG/ML VIAL IVP PRN ×2 (05:46→16:16)
[2018-09-11] MEDS: ACETAMINOPHEN 325 MG TAB PO PRN ×3 (05:46→21:19)
[2018-09-11] MEDS: Insulin Aspart [Novolog Flexpen] 0 UNIT SQ SCH ×3 (08:00→21:25)
[2018-09-11] MEDS: LEVEMIR 30 UNIT SC SCH ×2 (09:00→21:21)
[2018-09-11] MEDS: METOPROLOL TARTRATE 100 MG TAB PO SCH ×2 (09:01→21:19)
[2018-09-11] MEDS: SERTRALINE HCL 100 MG TAB PO SCH (09:01)
[2018-09-11] MEDS: LOSARTAN POTASSIUM 50 MG TAB PO SCH (09:02)
[2018-09-11] MEDS: ATORVASTATIN CALCIUM 40 MG TAB PO SCH (09:02)
[2018-09-11] MEDS: SPIRONOLACTONE 50 MG TAB PO SCH (09:02)
[2018-09-11] MEDS ORDERED: PROTOCOL MAGNESIUM 1 DOSE IV PRN (09:11)
[2018-09-11] MEDS ORDERED: PROTOCOL POTASSIUM 1 DOSE MISC PRN (09:11)
[2018-09-11] MEDS ORDERED: FUROSEMIDE 40 MG/4 ML VIAL IVP ONE (10:12)
--- NOTE | 2018-09-11 13:04 | HOSPPROG ---
Hospitalist Progress Note Assessment/Plan: 67yo M presented with severely elevated BP after having multiple anti- hypertensives (harjeet, amlodipine) stopped after recent hospitalization for ABLA. He reports that his BP is managed by [facility]. #Hypertensive urgency: Manifested as mild pulm edema. Reportedly carries diagnosis of hyperaldosteronism. - give additional Lasix -cont Amlodipine which was started on 09/10 - Continue losartan 100, metop 100 BID, harjeet 50 qd - Hydral prn for SBP>190 -check Renal US - ordered today #Volume overload, pedal edema -some response to diuretics. Will provide additional #Anemia: Hgb up a bit from last check. Had ABLA related to procedural complication after renal mass resection now s/p IR intervention. - Monitor #CAD: S/p 3 stents, most recently 2015. - Off aspirin and plavix. Per PCP notes has had much difficulty re- initiating due to bleeding. Plan to hold until early September - On statin, BB #T2DM: - Restart levemir (patient will use own pen) at 30u BID (half dose from home) , continue SSI with achs BG checks #Renal cell cancer: S/p resection with clean margins. Urologist is Dr Morales. #H/o C diff colitis: S/p course of treatment. No sxs currently. #Hypokalemia: replace. monitor closely. check Mg. Diet: regular VTE ppx: SCDs Code: full Plan: BP has improved slightly but would have anticipated further decrease after diuresis yesterday. Will provide additional diuretics today and cont meds per above in an op setting, his BP is managed by [facility]. He wants their consultation and I will obtain one today Check Renin - this is a send out check Renal US cont to hold Plavix and Aspirin given his hx of bleeding per above cont inpatient Subjective: no cp or sob. no n/v. still with HTN. Objective: Vital Signs Temp Pulse Resp BP Pulse Ox 36.8 C 74 14 180/88 H 97 09/11/18 08:00 09/11/18 08:00 09/11/18 08:00 09/11/18 08:00 09/11/18 08:00 Laboratory Results 09/11/18 03:16 09/11/18 10:08 10/24/18 10/25/18 10/26/18 05:59 05:59 05:59 Intake Total 1425 850 Output Total 1150 6038 Balance 275 -5242 PT 14.0 SEC (12.0-15.0) 09/08/18 14:25 INR 1.06 (0.83-1.16) 09/08/18 14:25 - Physical Exam Constitutional: no apparent distress Eyes: PERRL Ears, Nose, Mouth, Throat: moist mucous membranes, hearing normal Cardiovascular: regular rate and rhythym, edema (2+) Respiratory: no respiratory distress, no rales or rhonchi, clear to auscultation Gastrointestinal: normoactive bowel sounds, soft, non-tender abdomen Skin: warm Neurologic: AAOx3 Psychiatric: interacting appropriately, not anxious, not encephalopathic Lymph, Heme, Immunologic: No petechiae ICD10 Worksheet Patient Problems: Problems Problem Status Onset Hypertensive urgency Acute Shortness of breath Acute
[2018-09-11] MEDS ORDERED: POTASSIUM CL 10 MEQ TAB PO ONE ×2 (15:41→20:41)
[2018-09-11] MEDS ORDERED: MAGNESIUM SULF 1 GM/DEXTROSE 100 ML IV ONE (16:44)
[2018-09-11] MEDS: hydrALAZINE 10 MG TAB PO SCH (21:19)
[2018-09-12] MEDS: ACETAMINOPHEN 325 MG TAB PO PRN (03:21)
[2018-09-12] MEDS ORDERED: POTASSIUM CL 10 MEQ TAB PO ONE ×2 (08:05→20:23)
[2018-09-12] MEDS ORDERED: MAGNESIUM SULF 1 GM/DEXTROSE 100 ML IV ONE (08:18)
[2018-09-12] MEDS: ATORVASTATIN CALCIUM 40 MG TAB PO SCH (08:58)
[2018-09-12] MEDS: SPIRONOLACTONE 50 MG TAB PO SCH ×3 (08:58→19:35)
[2018-09-12] MEDS: hydrALAZINE 10 MG TAB PO SCH ×3 (08:58→22:35)
[2018-09-12] MEDS: SERTRALINE HCL 100 MG TAB PO SCH (08:58)
[2018-09-12] MEDS: LOSARTAN POTASSIUM 50 MG TAB PO SCH (08:59)
[2018-09-12] MEDS: LEVEMIR 30 UNIT SC SCH ×2 (09:18→22:39)
[2018-09-12] MEDS ORDERED: PERFLUTREN LIPID MICROSPHERES 1.1 MG/ML VIAL IV ONE (10:30)
[2018-09-12] MEDS: CARVEDILOL 25 MG TAB PO SCH ×2 (10:31→17:47)
[2018-09-12] MEDS ORDERED: SPIRONOLACTONE 50 MG TAB PO ONE (10:45)
[2018-09-12] MEDS: Insulin Aspart [Novolog Flexpen] 0 UNIT SQ SCH ×3 (10:45→19:33)
[2018-09-12] MEDS: ASPIRIN 81 MG CHEWABLE TAB PO SCH (11:31)
[2018-09-12] MEDS: METOPROLOL TARTRATE 100 MG TAB PO SCH (11:50)
--- NOTE | 2018-09-12 12:26 | HOSPPROG ---
Hospitalist Progress Note Assessment/Plan: 67yo M presented with severely elevated BP after having multiple anti- hypertensives (harjeet, amlodipine) stopped after recent hospitalization for ABLA. He reports that his BP is managed by [facility]. He initially presented with significant pedal edema and volume overload and has been diuresed. BP has had minimal improvement despite diuresis. #Hypertensive urgency: -Reportedly carries diagnosis of hyperaldosteronism: It is unclear why Spironolactone was discontinued previously. This has been restarted. Today he will get 100mg in a.m. and then changed to BID dosing. He reports that his BP was in the 130's systolic for over a month leading up to this hospitalization -Hold additional Lasix -cont Amlodipine which was started on 09/10 - Continue losartan 100 -BB per Cards - Hydral prn for SBP>190 - Renal US - checked on 09/11 was suboptiima -Cards and Nephrology to see today. Await further reccs -TTE pending #Volume overload, pedal edema -still with some pedal edema, but significantly improved #Anemia: Hgb up a bit from last check. Had ABLA related to procedural complication after renal mass resection now s/p IR intervention. - Monitor #CAD: S/p 3 stents, most recently 2015. - Off aspirin and plavix. Per PCP notes has had much difficulty re- initiating due to bleeding. Initial plan was to hold until early September, but will restart Aspirin low dose now - On statin and BB #T2DM: - Restart levemir (patient will use own pen) at 30u BID (half dose from home) , continue SSI with achs BG checks #Renal cell cancer: S/p resection with clean margins. Urologist is Dr Morales. #C diff colitis: -failed previous treatments -will start high dose PO Vancomycin -if no improvement, may need ID consult #Hypokalemia: replace. monitor closely. check Mg. #?Primary Hyperaldosteronism -Renin test sent out Diet: regular VTE ppx: SCDs Code: full Subjective: + C-Diff. no sob . no cp . bp still elevated Objective: Vital Signs Temp Pulse Resp BP Pulse Ox 37.1 C 72 13 185/76 H 98 09/12/18 07:24 09/12/18 07:24 09/12/18 07:24 09/12/18 07:24 09/12/18 07:24 Laboratory Results 09/11/18 03:16 09/12/18 03:15 09/11/18 09/12/18 09/13/18 05:59 05:59 05:59 Intake Total 850 350 Output Total 6072 6015 Balance -5245 -1425 PT 14.0 SEC (12.0-15.0) 09/08/18 14:25 INR 1.06 (0.83-1.16) 09/08/18 14:25 - Physical Exam Constitutional: no apparent distress Eyes: PERRL Ears, Nose, Mouth, Throat: moist mucous membranes, hearing normal Cardiovascular: regular rate and rhythym, edema (1+) Respiratory: no respiratory distress, no rales or rhonchi, clear to auscultation Gastrointestinal: normoactive bowel sounds, soft, non-tender abdomen Skin: warm Neurologic: AAOx3 Psychiatric: interacting appropriately, not anxious, not encephalopathic ICD10 Worksheet Patient Problems: Problems Problem Status Onset Hypertensive urgency Acute Shortness of breath Acute
--- NOTE | 2018-09-12 12:49 | SOAPPROG ---
KELLE Progress Note Assessment/Plan: Assessment: Renal consult please see dictation # [id number] I discussed my recs with hospitalist thanks for consult, will follow with you Dr. Chino on for weekend for us Bridgette Cui MD [facility] pager [phone] Objective: Vital Signs Temp Pulse Resp BP Pulse Ox 36.7 C 85 18 112/55 L 91 L 09/12/18 12:00 09/12/18 12:00 09/12/18 12:00 09/12/18 12:00 09/12/18 12:00 Laboratory Results 09/11/18 03:16 09/12/18 03:15 09/11/18 09/12/18 09/13/18 05:59 05:59 05:59 Intake Total 850 350 Output Total 6053 0296 [facility] [place] -5252 -6545 PT 14.0 SEC (12.0-15.0) 09/08/18 14:25 INR 1.06 (0.83-1.16) 09/08/18 14:25 ICD10 Worksheet Patient Problems: Problems Problem Status Onset Hypertensive urgency Acute Shortness of breath Acute
--- NOTE | 2018-09-12 13:24 | GCON ---
CARDIOLOGY CONSULTATION REFERRING PHYSICIAN: Micah Rankin MD REASON FOR CONSULTATION: Hypertensive crisis, known history of CAD. HISTORY OF PRESENT ILLNESS: The patient is a 67-year-old male who is known to our practice. His primary human performance professor is Dr. Lange. He has known history of CAD with previous MN and multiple stents in the past, per patient done while he was living in [place]. He also has a history of hypertension, hyperlipidemia, type 2 diabetes, morbid obesity, JANELLE, and in January of this year was found to have a mass on his left kidney. He did undergo a partial nephrectomy in June , which he reports was done at [facility]. Unfortunately postoperatively, he did have significant bleeding issues, requiring him stopping antiplatelet therapy and undergoing an interventional radiology procedure in which he had a coil procedure done. He also postoperatively develop C difficile. He informs me today that he has been feeling fairly well since his last hospitalization at the ending of July. Approximately 5 days ago, he does mention that he had been noticing significantly high blood pressures averaging with systolic over 200 mm Hg. With this, he had noted some shortness of breath but reported no chest pain or pressure. He does admit that he has recently been taken off his Aldactone, but he is uncertain why. He also reports that he has recently started using CPAP for his JANELLE, in which he has found difficulty using, feeling as if he is being suffocated when initially using machine. He reports no chest pain or pressure, reports no orthopnea, does admit he has noted a mild increase in peripheral edema upon admission. Denies of any orthopnea, PND, palpitations , near syncope, or syncopal events. Reports no symptoms suggestive of TIA or CVA. With his elevated blood pressures, he did come to [facility] on September 08. Electrocardiogram was done, which was noted sinus rhythm with left bundle branch block (patient is known to have left bundle branch block). Chest x-ray showed bronchitis versus viral pneumonitis. CTA of the chest showed no evidence of PE, trace bilateral effusion, calcification of the coronary arteries , abdominal CT showed postop changes in the left kidney with no visual complications, stable indeterminate right adrenal nodule. The patient has been admitted to the PCU, in which he has maintained sinus rhythm. He has received a few doses of Lasix with improvement of his swelling, and he denies any significant shortness of breath. Unfortunately despite medications continuing his home medication of metoprolol and losartan and increasing his home dose of amlodipine, his blood pressure has continued to be elevated. He was reinstituted on Aldactone by hospitalist services, and hydralazine has also been used to help with his blood pressure, but it has been averaging with a systolic in the 170s, diastolic in the 80s. On admission, he was noted to have a negative troponin level. PAST MEDICAL HISTORY: Includes coronary artery disease with multiple stentings , left renal mass/left renal cancer, hypertension, hyperlipidemia, C difficile, hematuria, and ischemic cardiomyopathy with known ejection fraction based off most recent heart catheterization of 50%. PAST SURGICAL HISTORY: Includes: 1. Multiple stentings of all 3 coronary arteries. 2. Recent cardiac catheterization done in December of this year which noted patent stents with moderate disease, nothing flow limiting. 3. Partial nephrectomy in June of 2018. 4. Interventional radiology coil procedure for hematuria. FAMILY HISTORY: The patient does report family history of heart disease in his mother. He also history of diabetes and lung cancer. 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 He occasionally drinks alcohol, occasionally uses caffeine. Denies of any tobacco use. Reports no illicit drug use. ALLERGIES: He has no known drug allergies. HOME MEDICATIONS: Include melatonin 10 mg p.o. h.s., atorvastatin 80 mg p.o. daily, metoprolol 100 mg p.o. b.i.d., losartan 100 mg p.o. h.s., NovoLog three times daily with meals, metformin 1000 mg p.o. b.i.d., Zoloft 150 mg p.o. daily. REVIEW OF SYSTEMS: A 10-point review of systems done on patient, all negative except as mentioned above. PHYSICAL EXAMINATION: GENERAL APPEARANCE: Medium built, moderately obese, male. He is alert and oriented to person, place, time, and situation. VITAL SIGNS: Current vital signs are blood pressure of 185/76, heart rate of 72, respirations are 13, saturating 98% on 2 L nasal cannula, temperature of 37.1 degrees Celsius. HEENT: Head is normocephalic. Lips and tongue are pink and moist with no signs of cyanosis. Conjunctivae pink. NECK: Trachea is midline, +2 carotid pulses bilateral. No auscultated bruits, jugular vein 4-5 cm above sternal notch. LUNGS: Lungs are clear bilaterally, with no rhonchi rales or wheezes. No accessory muscle use. No intercostal muscle retraction noted. CARDIAC: Regular rate, regular rhythm. S1, S2. No S3, S4, gallops, rubs, or murmurs noted. ABDOMEN: Soft, nontender. Bowel sounds x4 quadrants. Laparoscopic incisions healed with no signs of infection. SKIN: [place], warm, and dry. No cyanosis. No clubbing. Trace to +1 peripheral edema, bilateral lower extremities. VASCULAR: +2 carotids bilateral , +2 radials bilateral, +1 dorsal pedal and posterior tibial pulses bilateral. LABORATORY STUDIES: September 08 labs showed WBC of 9.08, hemoglobin 10.9, hematocrit of 34.5, platelet count of 261. Today, chemistry shows sodium of 140 , potassium 3.2, chloride 103, CO2 27, BUN 11, creatinine 0.9, glucose 132, calcium 8.9. Magnesium 1.8. Note: Patient was C difficile positive. On admission, the patient was noted to have elevated D-dimer of 0.61, proBNP of 4740, negative troponin at 0.03. STUDIES: Electrocardiogram chest x-ray, abdominal CT, and chest CT as mentioned above. The patient did undergo renal ultrasound Doppler study yesterday, in which velocities were only able to be measured in the distal segment of artery, poor study to evaluate the proximal mid area of the artery. ASSESSMENT AND PLAN: 1. Hypertension urgency: The patient has had mild improvement in blood pressures, with still systolic blood pressures running in the 180s, diastolic 80s to 70s, despite being on metoprolol 100 mg b.i.d., losartan, amlodipine 10 mg, and hydralazine 10 mg t.i.d. He has also received diuresis, with mild improvement. He has been taken off his Aldactone in the past, and he has been hypokalemic questioning possible hyperaldosteronism. He has been reinstituted on spironolactone with mild improvement pressure. Today, I would like to transition from metoprolol to carvedilol due to valve effect of the medication to see if this helps with his improvement. I have also talked to Dr. Rankin, in which we will increase him back to his previous dose of spironolactone. I have also recommended, with his recent nephrectomy and hypokalemia, that a nephrology consultation be done. No change in the rest of his medications at this time. I would like to also get a repeated echocardiogram done for further evaluation. 2. Coronary artery disease: Patient with noted history of multiple stents in the past, underwent coronary angiogram in December of this year. He was noted to have patent stents with moderate disease, non-flow limiting. The patient reports no chest pain or pressure. In the past, he has been on dual antiplatelet therapy with aspirin and clopidogrel due to the severity of his multivessel disease. This was discontinued due to hematuria, and the patient reports he has not been any antiplatelet therapy for the last 2 months. At current time, I would at least like to reinstitute him on aspirin at 81 mg p.o. daily. I will defer to Dr. Lange for consideration if the patient will need to be reinstituted on clopidogrel in the future. This could be done in the outpatient setting. I would like him to get a repeated echocardiogram today to evaluate his left ventricular systolic function , ensuring no new wall motion abnormalities. 3. Ischemic cardiomyopathy: Most recent echocardiogram did note low normal EF of 50%. Transitioned over to carvedilol as mentioned above, continue on home dose of losartan, and reinstituted Aldactone. 4. Hyperlipidemia: The patient has been reinstituted on his atorvastatin. 5. History of partial left nephrectomy: Patient with noted postoperatively to have hematuria and did require a coil procedure. Laboratories today showed BUN and creatinine within normal limits, but the patient has been noted to have episodes of ongoing hypokalemia. With his ongoing blood pressure issues and history of recent nephrectomy, I do think evaluation per Nephrology would be warranted. This was discussed with hospitalist services who said they will consult. 6. Clostridium difficile: Patient was positive for Clostridium difficile. Defer to hospitalist services. Thank you for this consultation. We will be glad to follow along with you. /[id number]/MODL MTDD
--- NOTE | 2018-09-12 15:04 | ASMTCMCOM ---
CM Note CM Note Notes: 09/12/2018 Case Management Note Discussed pt during rounds this morning. Pt is positive for CDiff. Faxed updates to [facility]. Case Management d/c poc: [facility] RN PT Case Management to follow. Date Signed: 09/12/2018 03:04 PM Electronically Signed By:Pascale Garcia RN
--- NOTE | 2018-09-12 16:55 | GCON ---
INPATIENT NEPHROLOGY CONSULTATION REFERRING PHYSICIAN: Micah Rankin MD REASON FOR CONSULTATION: Resistant hypertension. HPI: The patient is a very pleasant 67-year-old man with a history of coronary artery disease, statu s post prior stents, recent renal cell carcinoma status post partial nephrectomy, C difficile, and re sistant hypertension, who presented to the emergency room on September 08 with severely elevated bloo d pressures. The patient had a recent complicated hospitalization for a renal cell carcinoma. This was discovered incidentally on an imaging study done for abdominal pain. He underwent a partial neph rectomy, which was complicated by postoperative bleeding requiring embolization by Interventional Rad iology. Dr. Morales is his urologist. The patient tells me that he has had hypertension for many ye ars that has been difficult to control. He was previously living in [place] at the time, and he tells me as part of the workup was felt to have hyperaldosteronism. He was started on spironolactone at that time, and this seemed to really manage his blood pressure well. With his recent complicated hospitalization and the bleeding, several of his medications were held including the spironolactone. He notes over the past several days his blood pressure was running very high and he also felt short of breath, and thus came to the hospital. He states he normally lives in [place], [place] but i s out here visiting his son. He does use CPAP for obstructive sleep apnea and notes this helps manag e his blood pressure as well. After his recent surgery, unfortunately, he did develop C difficile co litis. This improved, however he has been having recurrent diarrhea. He has not had any blood in hi s stool. He does have underlying ischemic cardiomyopathy with an EF of 50%. Current medication ramana men includes carvedilol 25 mg p.o. b.i.d., hydralazine 10 mg p.o. losartan 100 mg daily, a nd spironolactone 50 mg p.o. b.i.d. His spironolactone was restarted at 50 mg daily and this has bee n increased to 50 b.i.d. His most recent blood pressure was 112/55 at noon today. He had previously been running in the 140s to 150s over the past [address] this admission does show a right adrenal nodule measuring 8 mm. He also has tiny bi lateral pleural effusions. REVIEW OF SYSTEMS: In general, no fevers or chills. No decreased oral intake. HEENT: No vision ch anges. No sore throat. PULMONARY: He did have some shortness of breath that has improved since adm ission. No cough. CARDIAC: No chest pain. No lower extremity edema. GI: No abdominal pain. He has had some diarrhea that is nonbloody. No vomiting. : No dysuria. He did previously have mikala turia after his hospitalization that has improved. SKIN: No rash. NEUROLOGIC: No loss of consciou sness. No weakness. ENDOCRINE: No polyuria or polydipsia. PAST MEDICAL HISTORY: 1. Coronary artery disease, status post prior stents. He does have ischemic cardiomyopathy with an EF of 50%. 2. Recent C difficile colitis. 3. Renal cell carcinoma, status post partial nephrectomy on the left side by Dr. Morales complicated by some postop bleeding requiring embolization. 4. Resistant hypertension. The patient does report a history of hyperaldosteronism. 5. Hyperlipidemia. 6. Obstructive sleep apnea on CPAP. 7. Adrenal nodule noted on CT scan. SOCIAL HISTORY: He is . Originally from [place], [place] but has been living with his so n out here in [place], as he enjoys it here. Denies any tobacco or alcohol. FAMILY HISTORY: He denies any family history of resistant hypertension. No kidney disease. No fami ly members requiring dialysis. CURRENT MEDICATIONS: Include Tylenol p.r.n., aspirin 81 mg p.o. daily, Lipitor 80 mg p.o. daily. Co reg 25 mg p.o. b.i.d., Robitussin p.r.n., hydralazine 10 mg p.o. t.i.d., losartan 100 mg p.o. daily, amlodipine 10 mg p.o. daily. Zofran p.r.n., Zoloft 100 mg p.o. daily. Spironolactone 50 mg p.o. b.i .d., vancomycin 250 mg p.o. orally 4 times daily. PHYSICAL EXAM: VITAL SIGNS: Temperature 36.7, blood pressure 112/55, pulse 85, saturating 91% on ro om air. GENERAL: He is very pleasant, in no acute distress. Appears comfortable, lying in bed flat comfortably. HEENT: Mucous membranes are moist. No scleral icterus. NECK: Supple. CARDIAC: Re gular rate and rhythm. PULMONARY: Nonlabored, clear. ABDOMEN: Soft, nontender. Normal bowel soun ds. EXTREMITIES: Trace edema bilaterally. Some venous stasis changes noted bilaterally on his perry s. NEUROLOGIC: Alert and oriented x3. SKIN: No obvious rash other than the venous stasis changes. LABS: His white blood cell count is 8.2, hemoglobin 10.3, hematocrit 32.9, platelets 222. Sodium 14 0, potassium 3.2, chloride 103, bicarbonate 27, BUN 11, creatinine 0.9, glucose 132, calcium 8.9, mag nesium 1.8. TSH 1.28. ASSESSMENT AND PLAN: The patient is a 67-year-old man with a history of coronary artery disease and ischemic cardiomyopathy, recent renal cell carcinoma status post left partial nephrectomy, obstructiv e sleep apnea, resistant hypertension, Clostridium difficile colitis, who now presents with hypertens ion urgency: 1. Resistant hypertension. His clinical presentation is consistent with hyperaldosteronism, given h is longstanding resistant hypertension, the adrenal nodule noted on CT, his hypokalemia, and his good response to spironolactone. His blood pressure was typically well controlled on spironolactone and then when this was discontinued during his recent hospitalization for bleeding, I suspect this is why his blood pressure spiked. With resuming the medication, his blood pressure has significantly impro jai and we need to be cautious that we do not overshoot. His spironolactone has been increased to 50 mg b.i.d. and at this point, I would hold his amlodipine, given the most recent blood pressure of . We will monitor him closely. I encouraged him to continue to use his continuous positive-airw ay pressure, as this will also help manage it. I will defer the other medications with Cardiology an d I agree with the hydralazine and Coreg, given his underlying coronary artery disease. He did recei ve Lasix earlier in the hospitalization, given that he was fluid up on presentation. He is on losart an as well, which I agree with. 2. Hypokalemia. This is likely a combination of hyperaldosteronism and his diarrhea from his C diff icile. He is getting replacement and we are also checking his mag closely. The spironolactone will also help with potassium sparing. We will continue to monitor closely. The aldosterone levels may b e difficult to interpret in the setting of Aldactone, and unfortunately these were not checked when h e was off the medication. 3. Clostridium difficile. He is on oral vancomycin. 4. Coronary artery disease with ischemic cardiomyopathy. Cardiology is following. I have discussed my recommendations with the hospitalist. Thank you for consulting us. We will continue to follow. Please do not hesitate to call with any qu estions. /[id number]/MODL
[2018-09-12] MEDS: VANCOMYCIN 125 MG/2.5 ML UDL PO SCH ×2 (16:57→19:34)
--- NOTE | 2018-09-12 17:21 | ECHO ---
[email or web address] [address] [address] Main: [phone] Fax: Transthoracic Echocardiogram Name: DAMIAN JOAQUIN MR#: [id number] Study Date: 09/12/2018 Study Time: 10:41 AM Date of : 1950 Age: 67 year(s) Height: 188 cm (74 in.) Weight: 130.18 kg (287 lb.) BSA: 2.53 m2 Gender: Male Examination: Echo with Definity Indication: Coronary artery disease, HTN urgency and mild pericardial effusion seen on CT Image Quality: Technically Difficult Contrast: 0.250 mg I.V. dose of Definity was administered to improve endocardial border definition. Requested by: Zane Parkinson BP: 177 mmHg/75 mmHg Heart Rate: Rhythm: Indication: Coronary artery disease, HTN urgency and mild pericardial effusion seen on CT Procedure Staff Artifacts Conservator: Anupama Whitman [facility] Reading Physician: Baudilio Torres MD Requesting Provider: Conclusions: Normal size left ventricle. Moderate concentric LV hypertrophy. Normal global systolic LV function. EF is 63 %. No regional wall motion abnormality. Normal diastolic LV function. Mildly abnormal septal motion secondary to LBBB. Normal size right ventricle. The left atrium is mildly dilated. The right atrium is mildly dilated. Mobile linear echo noted in the right atrium which most likely represents the right atrial wall. The mitral valve is normal in appearance and function. There is no mitral valve regurgitation. No mitral stenosis is present. There is no aortic valve regurgitation. No aortic valve stenosis is present. The tricuspid valve is normal in appearance and function. There is no significant tricuspid valve regurgitation. Pulmonary artery pressure is not obtained due to inadequate TR jet. Pulmonary valve not well visualized. Trivial pulmonic valve regurgitation. Normal size aortic root measuring 3.2 cm. Normal size ascending aorta measuring 3.5 cm. The IVC is normal sized. There is greater ann marie 50% respiratory excursion. Small pericardial effusion. No echocardiographic evidence of hemodynamic compromise. Compared to prior study 12/12/2017 there has been impovement of the wall motion abnormalities as Patient: DAMIAN JOAQUIN Study Date: 09/12/2018 Page 1 of 3 10:41 AM documented on this Definity aided study. The small pericardial effusion is new. Measurements: Chambers Valvular Assessment AV/MV Valvular Assessment TV/PV Normal Normal Normal Name Value Range Name Value Range Name Value Range Ao Kimberley (MM): 3.2 cm (2.2 cm-3.7 AV Vmax: 1.39 m/s (1 m/s-1.7 PV Vmax: 1.41 m/s (0.6 m/s-0.9 cm) m/s) m/s) IVSd (2D): 1.5 cm (0.6 cm-1.1 AV maxP mmHg ( - ) PV PGmax: 8 mmHg ( - ) cm) LVOT Vmax: 1.19 m/s (0.7 m/s-1.1 LVDd (2D): 4.9 cm (4.2 cm-5.9 m/s) cm) MV E Vmax: 0.45 m/s ( - ) LVDs (2D): 3.4 cm (2.1 cm-4 MV A Vmax: 0.81 m/s ( - ) cm) MV E/A: 0.56 ( - ) LVPWd (2D): 1.4 cm (0.6 cm-1 cm) LVEF (BP): 63 % (>=55 %) RVDd(2D): 3.0 cm (1.9 cm-3.8 cmmm) Continued Measurements: Chambers Valvular Assessment AV/MV Name Value Name Value LADs Lon.8 cm MV DecTime: 194 m/s LA Area: 23.2 cm2 MV E' Septal: 0.05 m/s LA Volume: 88 ml MV E/E' Septal: 8.80 LA Volume Index: 34.8 ml/m2 MV E/E' Lateral: 8.60 TAPSE: 2.1 cm RA Area: 19.3 cm2 Additional Vessels Name Value Ao Ascendin.5 cm Findings: Left Ventricle: Normal size left ventricle. Moderate concentric LV hypertrophy. Normal global systolic LV function. EF is 63 %. No regional wall motion abnormality. Normal diastolic LV function. Mildly abnormal septal motion secondary to LBBB. Right Ventricle: Normal size right ventricle. Normal RV function. Left Atrium: The left atrium is mildly dilated. Right Atrium: The right atrium is mildly dilated. Mobile linear echo noted in the right atrium which most likely represents the right atrial wall. Mitral Valve: The mitral valve is normal in appearance and function. There is no mitral valve regurgitation. No mitral stenosis is present. Aortic Valve: The aortic valve is tri-leaflet and functions normally. There is no aortic valve regurgitation. No aortic valve stenosis is present. Tricuspid Valve: The tricuspid valve is normal in appearance and function. There is no significant tricuspid valve regurgitation. Pulmonary artery pressure is not obtained due to inadequate TR jet. Pulmonic Valve: Pulmonary valve not well visualized. Trivial pulmonic valve regurgitation. Aorta: Patient: DAMIAN JOAQUIN Study Date: 09/12/2018 Page 2 of 3 10:41 AM Normal size aortic root measuring 3.2 cm. Normal size ascending aorta measuring 3.5 cm. IVC: The IVC is normal sized. There is greater ann marie 50% respiratory excursion. Pericardium: Small pericardial effusion. No echocardiographic evidence of hemodynamic compromise. (No Signature Object) Patient: DAMIAN JOAQUIN Study Date: 09/12/2018 Page 3 of 3 10:41 AM [id number]
[2018-09-13] MEDS: VANCOMYCIN 125 MG/2.5 ML UDL PO SCH ×4 (07:17→21:14)
[2018-09-13] MEDS ORDERED: POTASSIUM CL 10 MEQ TAB PO ONE (08:37)
--- NOTE | 2018-09-13 08:54 | HOSPPROG ---
Hospitalist Progress Note Assessment/Plan: #Resistant HTN: unclear why Aldactone overnight, has been restarted. Hydral increased 25mg BID, Losartan, Coreg/ Hold Norvasc -discussed case with Dr. Fang #Hypokalemia: replacing #2nd recurrence of C diff: reviewed OSH. Diagnosed at [facility] in Jul 05 and treated with Vanc. Then again treated with Dificid in August with complete resolution both times. Now with recurrent diarrhea. Treat with Vanc x 2 weeks, then prolonged taper per guidelines #CAD: ASA, statin, BB #Adrenal nodule: stable #Recently diagnosed RCC: s/p partial nephrectomy complicated by post-op bleed #JANELLE #DM: home insulin #Diet: diabetic Inpatient admission for telemetry, BP control Subjective: no CP. Stools becoming more formed Objective: Vital Signs Temp Pulse Resp BP Pulse Ox 36.6 C 85 14 187/90 H 98 09/13/18 08:00 09/13/18 08:00 09/13/18 08:00 09/13/18 08:00 09/13/18 08:00 Laboratory Results 09/11/18 03:16 09/13/18 03:13 09/12/18 09/13/18 09/14/18 05:59 05:59 05:59 Intake Total 350 950 Output Total 1775 650 Balance -1425 300 PT 14.0 SEC (12.0-15.0) 09/08/18 14:25 INR 1.06 (0.83-1.16) 09/08/18 14:25 - Time Spent With Patient Time Spent with Patient: greater than 35 minutes Time Spent with Patient: Greater than 35 minutes spent on this patients care, greater than 50% of time spent counseling, educating, and coordinating care regarding the above mentioned plan. - Physical Exam Constitutional: no apparent distress, obese Eyes: PERRL Ears, Nose, Mouth, Throat: moist mucous membranes, hearing normal Cardiovascular: regular rate and rhythym, edema Respiratory: no respiratory distress Gastrointestinal: normoactive bowel sounds Genitourinary: no bladder fullness Skin: warm Musculoskeletal: full muscle strength Neurologic: AAOx3, CN II-XII Intact ICD10 Worksheet Patient Problems: Problems Problem Status Onset Hypertensive urgency Acute Shortness of breath Acute
[2018-09-13] MEDS: CARVEDILOL 25 MG TAB PO SCH ×2 (09:51→18:46)
[2018-09-13] MEDS: LOSARTAN POTASSIUM 50 MG TAB PO SCH (09:51)
[2018-09-13] MEDS: ATORVASTATIN CALCIUM 40 MG TAB PO SCH (09:51)
[2018-09-13] MEDS: hydrALAZINE 10 MG TAB PO SCH (09:51)
[2018-09-13] MEDS: SERTRALINE HCL 100 MG TAB PO SCH (09:52)
[2018-09-13] MEDS: ASPIRIN 81 MG CHEWABLE TAB PO SCH (09:52)
[2018-09-13] MEDS: Insulin Aspart [Novolog Flexpen] 0 UNIT SQ SCH ×3 (10:15→18:49)
--- NOTE | 2018-09-13 10:21 | PDCARPN ---
Cardiology Progress Note Assessment/Plan: Assessment: -Hypertensive Urgency -CAD -C.Diff -Recent dx of Renal Cell CA sp partial nephrectomy Jul 02, 2018 in [place] ( complicated by post op bleeding) Plan: -Restart Spironolactone 50 mg bid -Continue Coreg 25 mg PO bid -Continue Losartan 100 mg daily -Continue Hydralazine 10 mg tid -Agree with Nephrology to remain off of amlodipine for now -Continue Aspirn 81 mg daily -Continue Atrovastatin 80 mg daily 09/13/18 10:21 Subjective: Mr. Norris is feeling well this AM. BP readings this AM are elevated, however, he has not had his medications for HTN this morning. He denies chest pain, sob , bobo. Tele demonstrates NSR with occasional PVC's. Reviewed/Discussed With: hospitalist, multidisciplinary team Time Spent with Patient: greater than 25 minutes Time Spent with Patient: Greater than 25 minutes spent on this patients care, greater than 50% of time spent counseling, educating, and coordinating care regarding the above mentioned plan. Objective: Vital Signs (8 Hrs) Temp Pulse Resp BP Pulse Ox 09/13/18 08:00 36.6 C 85 14 187/90 H 98 09/13/18 07:30 74 L 09/13/18 04:00 36.7 C 101 H 20 173/86 H 97 Intake/Output (24 Hrs) 09/12/18 09/13/18 09/14/18 05:59 05:59 05:59 Intake Total 350 950 Output Total 1775 650 Balance -1425 300 Intake: Oral (ml) 350 950 Output: Urine (ml) 1775 650 Urinal 1775 650 Other: Number of Voids Urinal 1 Number of Stools Urinal 1 Result Diagrams: 09/11/18 03:16 09/13/18 03:13 - Physical Exam Ears, Nose, Mouth, Throat: moist mucous membranes Cardiovascular: regular rate and rhythm, no murmurs, no rubs, no gallops Respiratory: clear to auscultate bilat ICD10 Worksheet Patient Problems: Problems Problem Status Onset Hypertensive urgency Acute Shortness of breath Acute
[2018-09-13] MEDS: SPIRONOLACTONE 50 MG TAB PO SCH ×4 (10:39→21:13)
--- NOTE | 2018-09-13 10:47 | SOAPPROG ---
SOAP Progress Note Assessment/Plan: Assessment/Plan: 67 y/o M with resistant HTN 2/2 to hyperaldosteronism presents with HTN urgency. -BP's elevated to 180's again -give am aldactone dose now -increased hydralazine to 25mg po tid -continue ARB at max dose, Coreg 25mg po bid -haven't consider diuretic in the past but may need to with K+ replacement -continue to replete K for now -2g Na diet -will continue to follow, goal SBP<150mmHg prior to discharge -please contact if ?'s, cardiology appreciated 09/13/18 11:34 Subjective: Patient feeling well. Somehow am aldactone dose was cancelled. Objective: Vital Signs Temp Pulse Resp BP Pulse Ox 36.6 C 85 14 187/90 H 98 09/13/18 08:00 09/13/18 08:00 09/13/18 08:00 09/13/18 08:00 09/13/18 08:00 Laboratory Results 09/11/18 03:16 09/13/18 03:13 09/12/18 09/13/18 09/14/18 05:59 05:59 05:59 Intake Total 350 950 Output Total 1775 650 Balance -1425 300 PT 14.0 SEC (12.0-15.0) 09/08/18 14:25 INR 1.06 (0.83-1.16) 09/08/18 14:25 Physical Exam - Physical Exam General Appearance: WD/WN, alert, no apparent distress EENT: PERRL/EOMI, pharynx normal Neck: non-tender, full range of motion, supple Respiratory: chest non-tender, lungs clear, normal breath sounds Cardiac/Chest: normal peripheral pulses, regular rate, rhythm Abdomen: normal bowel sounds, non-tender, soft, distended Skin: normal color, warm/dry Extremities: normal range of motion, non-tender Neuro/Psych: no motor/sensory deficits, alert, normal mood/affect, oriented x 3 ICD10 Worksheet Patient Problems: Problems Problem Status Onset Hypertensive urgency Acute Shortness of breath Acute
[2018-09-13] MEDS: LEVEMIR 30 UNIT SC SCH ×2 (10:50→19:30)
[2018-09-13] MEDS: hydrALAZINE 25 MG TAB PO SCH ×2 (15:53→21:13)
[2018-09-13] MEDS: MELATONIN 3 MG TAB PO SCH (21:13)
[2018-09-14] MEDS: VANCOMYCIN 125 MG/2.5 ML UDL PO SCH ×4 (06:42→20:57)
[2018-09-14] MEDS ORDERED: POTASSIUM CL 10 MEQ TAB PO ONE ×2 (08:20→21:07)
--- NOTE | 2018-09-14 08:57 | PDCARPN ---
Cardiology Progress Note Assessment/Plan: Assessment: -Hypertensive Urgency -CAD -C.Diff -Recent dx of Renal Cell CA sp partial nephrectomy Jul 02, 2018 in [place] ( complicated by post op bleeding) Plan: -Recommend Discontinuing Hydralazine (secondary to need to be dosed TID as an out pt) -Recommend Amlodipine 10 mg daily -Restart Spironolactone 50 mg bid -Continue Coreg 25 mg PO bid -Continue Losartan 100 mg daily -Continue Aspirn 81 mg daily -Continue Atrovastatin 80 mg daily 09/13/18 10:21 09/14/18 08:55 09/14/18 08:58 Subjective: is feeling better today. BP has improved with return of Spironolactone 50 mg PO bid. He remains on Losartan 100 mg daily and Coreg 25 mg PO bid. He was started on Hydralazine 10 mg tid. He has been on Amlodipine at home, which was stopped during this admission. He restarted aspirin yesterday. No hematuria. No cardiac complaints. Time Spent with Patient: greater than 25 minutes Time Spent with Patient: Greater than 25 minutes spent on this patients care, greater than 50% of time spent counseling, educating, and coordinating care regarding the above mentioned plan. Objective: Vital Signs (8 Hrs) Temp Pulse Resp BP Pulse Ox 09/14/18 03:23 36.6 C 84 16 171/82 H 99 Intake/Output (24 Hrs) 09/13/18 09/14/18 09/15/18 05:59 05:59 05:59 Intake Total 950 800 Output Total 650 400 Balance 300 400 Intake: Oral (ml) 950 800 Output: Urine (ml) 650 400 Urinal 650 400 Other: Number of Voids Urinal 1 4 Number of Stools Urinal 1 1 Result Diagrams: 09/11/18 03:16 09/14/18 03:08 - Physical Exam Neurologic: AAOx3, CN II-XII grossly intact Psychiatric: cooperative, interactive, following commands ICD10 Worksheet Patient Problems: Problems Problem Status Onset Shortness of breath Acute Hypertensive urgency Acute
[2018-09-14] MEDS ORDERED: Herbals/Supplements -Info Only PO SCH (09:00)
[2018-09-14] MEDS: hydrALAZINE 25 MG TAB PO SCH (09:15)
[2018-09-14] MEDS: ATORVASTATIN CALCIUM 40 MG TAB PO SCH (09:15)
[2018-09-14] MEDS: CARVEDILOL 25 MG TAB PO SCH ×2 (09:15→18:18)
[2018-09-14] MEDS: SERTRALINE HCL 100 MG TAB PO SCH (09:16)
[2018-09-14] MEDS: SPIRONOLACTONE 50 MG TAB PO SCH ×2 (09:16→20:57)
[2018-09-14] MEDS: LOSARTAN POTASSIUM 50 MG TAB PO SCH (09:16)
[2018-09-14] MEDS: ASPIRIN 81 MG CHEWABLE TAB PO SCH (09:16)
[2018-09-14] MEDS: Insulin Aspart [Novolog Flexpen] 0 UNIT SQ SCH ×3 (09:17→19:20)
[2018-09-14] MEDS: LEVEMIR 30 UNIT SC SCH ×2 (09:17→20:56)
--- NOTE | 2018-09-14 11:41 | HOSPPROG ---
Hospitalist Progress Note Assessment/Plan: 67-year-old admitted with resistant hypertension. He has a number of medical issues and his blood pressure has been difficult to control, he has been on a number of medication adjustments during his hospitalization. I reviewed the notes. # resistant hypertension: Aldactone resumed, currently on losartan, Coreg and hydralazine. Blood pressures continue to be elevated despite these medications. I reviewed cardiology note who recommends discontinuing hydralazine due to frequent dosing as an outpatient and try Norvasc * Add Norvasc * Hold hydralazine for now * Follow-up blood pressures on this regimen # hypokalemia, replace as needed # C diff colitis this is his 3rd episode. Continue p. o. Vanco for 2 weeks and then taper per guidelines. * 2 weeks qid * 1 week bid * 1 week daily * 2 weeks qod # coronary artery disease currently on a statin and beta-fan and aspirin # stable adrenal nodule # renal cell carcinoma status post nephrectomy # obstructive sleep apnea # insulin-requiring diabetes, currently on home regimen Subjective: Patient new to me and chart reviewed. Complains of rash on his feet has a history of athlete's foot. Otherwise feels well and is asymptomatic Objective: Vital Signs Temp Pulse Resp BP Pulse Ox 37.0 C 80 15 162/72 H 97 09/14/18 09:01 09/14/18 09:15 09/14/18 09:01 09/14/18 09:16 09/14/18 09:01 Laboratory Results 09/11/18 03:16 09/14/18 03:08 09/13/18 09/14/18 09/15/18 05:59 05:59 05:59 Intake Total 950 800 650 Output Total 650 400 400 Balance 300 400 250 PT 14.0 SEC (12.0-15.0) 09/08/18 14:25 INR 1.06 (0.83-1.16) 09/08/18 14:25 - Physical Exam Constitutional: no apparent distress, obese Eyes: PERRL Ears, Nose, Mouth, Throat: moist mucous membranes Cardiovascular: regular rate and rhythym Respiratory: no respiratory distress, clear to auscultation Gastrointestinal: soft, non-tender abdomen Genitourinary: no bladder fullness Skin: warm, rash (On feet fungal appearing) Musculoskeletal: No muscular tenderness Neurologic: AAOx3 Psychiatric: interacting appropriately, not anxious ICD10 Worksheet Patient Problems: Problems Problem Status Onset Hypertensive urgency Acute Shortness of breath Acute
[2018-09-14] MEDS: ACETAMINOPHEN 325 MG TAB PO PRN ×3 (12:11→21:15)
--- NOTE | 2018-09-14 14:33 | SOAPPROG ---
SOAP Progress Note Assessment/Plan: Assessment/Plan: 67 y/o M with resistant HTN 2/2 to hyperaldosteronism presents with HTN urgency. -BP's still in 160's -hydralazine held per cardiology -continue ARB at max dose, Coreg 25mg po bid -haven't consider diuretic in the past but may need to with K+ replacement -continue to replete K for now -2g Na diet -increase aldactone to 100mg po BID if no improvement by tonight -will continue to follow, goal SBP<150mmHg prior to discharge -please contact if ?'s 09/14/18 14:32 Subjective: Patient BP's still high. No complaints. Objective: Vital Signs Temp Pulse Resp BP Pulse Ox 36.4 C 78 21 H 162/74 H 94 09/14/18 12:10 09/14/18 12:10 09/14/18 12:10 09/14/18 12:11 09/14/18 12:10 Laboratory Results 09/11/18 03:16 09/14/18 03:08 09/13/18 09/14/18 09/15/18 05:59 05:59 05:59 Intake Total 950 800 650 Output Total 650 400 400 Balance 300 400 250 PT 14.0 SEC (12.0-15.0) 09/08/18 14:25 INR 1.06 (0.83-1.16) 09/08/18 14:25 Physical Exam - Physical Exam General Appearance: WD/WN, alert, obese EENT: PERRL/EOMI Neck: non-tender, full range of motion, supple Respiratory: chest non-tender, lungs clear, normal breath sounds Cardiac/Chest: normal peripheral pulses, regular rate, rhythm Abdomen: normal bowel sounds, non-tender, soft, distended Skin: normal color, warm/dry Extremities: normal range of motion, non-tender Neuro/Psych: no motor/sensory deficits, alert, normal mood/affect, oriented x 3 ICD10 Worksheet Patient Problems: Problems Problem Status Onset Hypertensive urgency Acute Shortness of breath Acute
[2018-09-14] MEDS: CLOTRIMAZOLE 1% 15 GM CRTUBE TP SCH ×2 (14:34→20:58)
[2018-09-14] MEDS: MELATONIN 3 MG TAB PO SCH (20:57)
[2018-09-15] MEDS: ACETAMINOPHEN 325 MG TAB PO PRN (05:32)
[2018-09-15] MEDS: VANCOMYCIN 125 MG/2.5 ML UDL PO SCH ×2 (05:32→12:40)
[2018-09-15] MEDS: Insulin Aspart [Novolog Flexpen] 0 UNIT SQ SCH ×2 (08:32→14:29)
[2018-09-15] MEDS: LEVEMIR 30 UNIT SC SCH (08:33)
[2018-09-15] MEDS: CARVEDILOL 25 MG TAB PO SCH (08:42)
[2018-09-15] MEDS: SERTRALINE HCL 100 MG TAB PO SCH (08:42)
[2018-09-15] MEDS: LOSARTAN POTASSIUM 50 MG TAB PO SCH (08:43)
[2018-09-15] MEDS: ASPIRIN 81 MG CHEWABLE TAB PO SCH (08:43)
[2018-09-15] MEDS: ATORVASTATIN CALCIUM 40 MG TAB PO SCH (08:43)
[2018-09-15] MEDS: SPIRONOLACTONE 50 MG TAB PO SCH (09:00)
--- NOTE | 2018-09-15 10:48 | PDCARPN ---
Cardiology Progress Note Chief Complaint: HYPERTENSION Assessment/Plan: Assessment: 1. Hypertensive Urgency- Hydralazine DC'd. Amlodipine 10 mg QD added, Spironolactone 50 mg BID added, Continue Coreg 25 mg BID, Losartan 100 mg QD 2. CAD-- Stable. Continue on ASA 81 mg QD, and Atorvastatin 80 mg QD. 3. C.Diff--- 4. Recent dx of Renal Cell CA sp partial nephrectomy Jul 02, 2018 in [place] ( complicated by post op bleeding) Plan: Hydralazine may need to be dosed TID as an outpatient Subjective: Feeling better today. BP better with Spironolactone 50 mg PO bid. No chest pain or other cardiac complaints. Reviewed/Discussed With: multidisciplinary team Time Spent with Patient: greater than 25 minutes Time Spent with Patient: Greater than 25 minutes spent on this patients care, greater than 50% of time spent counseling, educating, and coordinating care regarding the above mentioned plan. Objective: Vital Signs (8 Hrs) Temp Pulse Resp BP Pulse Ox 09/15/18 08:25 36.6 C 80 18 178/77 H 94 09/15/18 04:00 36.6 C 70 12 159/71 H 99 Intake/Output (24 Hrs) 09/14/18 09/15/18 09/16/18 05:59 05:59 05:59 Intake Total 800 1000 Output Total 400 1675 Balance 400 -675 Intake: Oral (ml) 800 1000 Output: Urine (ml) 400 1675 Urinal 400 1675 Other: Number of Voids Toilet 1 Urinal 4 3 Number of Stools Urinal 1 Result Diagrams: 09/11/18 03:16 09/15/18 03:34 ICD10 Worksheet Patient Problems: Problems Problem Status Onset Shortness of breath Acute Hypertensive urgency Acute
--- NOTE | 2018-09-15 11:33 | SOAPPROG ---
SOAP Progress Note Assessment/Plan: Assessment/Plan: 67 y/o M with resistant HTN 2/2 to hyperaldosteronism presents with HTN urgency. -BP's fluctuating -hydralazine may resume per cardiology -continue ARB at max dose, Coreg 25mg po bid -haven't consider diuretic in the past but may need to with K+ replacement -continue to replete K for now -2g Na diet -consider increasing aldactone to 100mg po BID -will sign off and obtain f/u in 4-6 weeks per patient wishes -please contact if ?'s 09/15/18 11:31 Subjective: BP's on patient wrist cuff 130's and 150's last night however higher again this am. Objective: Vital Signs Temp Pulse Resp BP Pulse Ox 36.6 C 80 18 178/77 H 94 09/15/18 08:25 09/15/18 08:25 09/15/18 08:25 09/15/18 08:25 09/15/18 08:25 Laboratory Results 09/11/18 03:16 09/15/18 03:34 09/14/18 09/15/18 09/16/18 05:59 05:59 05:59 Intake Total 800 1000 Output Total 400 1675 Balance 400 -675 PT 14.0 SEC (12.0-15.0) 09/08/18 14:25 INR 1.06 (0.83-1.16) 09/08/18 14:25 Physical Exam - Physical Exam General Appearance: WD/WN, alert, no apparent distress, obese EENT: PERRL/EOMI Neck: non-tender, full range of motion, supple Respiratory: chest non-tender, lungs clear Cardiac/Chest: normal peripheral pulses, regular rate, rhythm Abdomen: normal bowel sounds, non-tender, soft Skin: normal color, warm/dry Extremities: normal range of motion, non-tender Neuro/Psych: no motor/sensory deficits, alert, normal mood/affect ICD10 Worksheet Patient Problems: Problems Problem Status Onset Hypertensive urgency Acute Shortness of breath Acute
[2018-09-15] MEDS: CLOTRIMAZOLE 1% 15 GM CRTUBE TP SCH (12:40)
--- NOTE | 2018-09-15 13:54 | GDS ---
DIAGNOSES: 1. Resistant hypertension, symptomatic and improved at the time of discharge. 2. Coronary artery disease, stable. 3. Recurrent Clostridium difficile colitis. 4. Recent diagnosis of renal cell carcinoma status post partial nephrectomy. 5. Anemia, acute blood-loss anemia due to his nephrectomy, stable this admission. 6. Type 2 diabetes, on aspart and Levemir. 7. Depression. CONSULTATIONS: 1. Cardiology. 2. Nephrology. PROCEDURES DONE: 1. Abdominal CT scan: Postop changes in the left kidney. Stable 9 mm nodule in the left kidney. B ilateral pleural effusions. Stable indeterminate right adrenal node. 2. CT angiogram of the chest: No evidence of pulmonary embolic disease. Three-vessel calcified pete que noted. 3. Echocardiogram: Normal global systolic LV function with an EF of 63%. Normal diastolic LV funct ion. Abnormal septal motion secondary to left bundle branch block. 4. Renal ultrasound with Doppler: Severely limited study due to body habitus elevated. HOSPITAL COURSE: The patient is a 67-year-old man with a history of coronary artery disease and diab etes with resistant hypertension who comes in complaining of elevated blood pressure. For the past f ew days prior to admission, his blood pressure was elevated in the 200/100 range. This started after he was taken off his home spironolactone at the time of his hospitalization in July. He believ es he had a previous diagnosis of elevated aldosterone level. He was admitted to the hospital, and b [facility] Cardiology and Nephrology were consulted with the above procedures performed. He had a number of medications tried to help control his blood pressure. Eventually, his blood pressure did improve, b ut continues to be mildly elevated in the 150 to 160 over 70 range. He is completely asymptomatic an d feels good and I feel at this point, he can go home with ongoing titration of medications as an out patient. Of note, his spironolactone was increased from 50 b.i.d. to 100 b.i.d. on the day of discha rge. Because of this, he will get blood work done in a few days to make sure his electrolytes are no rmal. His renal function has remained stable. The patient was noted to have recurrent Clostridium difficile colitis during this hospitalization. Sarina alvarez was placed back on vancomycin at 125 mg q.i.d. Recommendations are for him to do a slow taper, fin ishing 2 weeks of q.i.d. dosing of 125, then going down to 125 b.i.d. for a week, 125 daily for a wee k, and 125 every other day for 2 weeks. If he has recurrent Clostridium difficile colitis after that , he should probably follow up with GI for possible fecal transplant. CONDITION ON DISCHARGE: Good. He is afebrile. Heart rate 70, blood pressure anywhere from 151/80 t o 170/80. He is alert and oriented. Heart is regular. Lungs are clear. He feels good. DISCHARGE MEDICATIONS: Please see discharge medication form. These include amlodipine 10 mg daily, Coreg 25 b.i.d., losartan 100 mg daily, spironolactone 100 mg b.i.d. He will resume his home doses o f atorvastatin, insulin, and losartan. He is also on vancomycin for Clostridium difficile and will b e on a long titration for that. FOLLOWUP INSTRUCTIONS: The patient will follow up with Dr. Fang on Saturday. He will get some blood w ork done for a metabolic panel on Saturday to be sent to Dr. Fang's office. He can also follow up w ith his primary care provider regarding his Clostridium difficile colitis. Total time spent with patient day of discharge and coordination of care is 35 minutes. /[id number]/MODL
--- NOTE | 2018-09-15 14:14 | PDIAF ---
- Diagnosis Diagnosis: hypertensive urgency, c.diff. Code Status: Full Code - Medication Management Discharge Medications: Medications to Continue on Transfer Atorvastatin Calcium [Lipitor 40 mg (*)] 80 mg PO DAILY@1800 12/25/17 [Last Taken 09/07/18] Insulin Aspart [Novolog Flexpen] 0 unit SQ TIDMEAL 12/25/17 [Last Taken 09/08/18 ] Losartan Potassium [Cozaar 50 mg (*)] 100 mg PO HS 12/25/17 [Last Taken 09/07/18 ] Sertraline HCl [Zoloft 100mg (*)] 150 mg PO DAILY 12/25/17 [Last Taken 09/08/18] Herbals/Supplements -Info Only 1 ea PO DAILY 09/08/18 [Last Taken Unknown] Melatonin [Melatonin 3 MG (*)] 10 mg PO HS 09/08/18 [Last Taken 09/07/18] metFORMIN HCL [Metformin HCl] 1,000 mg PO BIDMEAL 09/08/18 [Last Taken 09/08/18] Aspirin [Aspirin 81mg (*)] 81 mg PO DAILY tab.chew 09/15/18 [Last Taken Unknown ] Carvedilol [Coreg (*)] 25 mg PO BIDMEAL #60 tab 09/15/18 [Last Taken Unknown] Levemir Pen 30 units SC BID 09/15/18 [Last Taken Unknown] Spironolactone [Aldactone] 100 mg PO BID #120 tab 09/15/18 [Last Taken Unknown] Vancomycin [Vancocin Oral Liquid] 125 mg PO QID #84 udl 09/15/18 [Last Taken Unknown] amLODIPine BESYLATE [Norvasc 10 mg (*)] 10 mg PO DAILY #30 tab 09/15/18 [Last Taken Unknown] 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 - Orders Services needed: Registered Nurse Isolation Type: CDIFF Isolation Diet Recommendation: sodium restricted, cardiac -low fat low salt Diet Texture: Regular Texture Diet Additional Instructions: I will write for some blood work to be done on Saturday. Follow up with Dr. Fang at [facility] on Saturday at 2:45 pm [facility], I sent your prescriptions in to [facility] For the oral Vanco I recommend you go to [facility] pharmacy to get the liquid form it is a lot cheaper - Labs/Radiology BMP Date: 09/17/18 Call or Fax Lab and Imaging Results to: Dr. Mario Fang at [facility] - Follow Up Care Current Providers and Referrals: Jacqui Leonardo MD [Primary Care Provider] - As per Instructions
--- NOTE | 2018-09-15 14:22 | ASMTLACE ---
LACE Length of stay for Answers: 4-6 days current admission Acuity / Level of Answers: Yes Care: Did the patient have an inpatient admission? Comorbidities - select Answers: Coronary Artery Disease all that apply Diabetes (uncontrolled or controlled) Previous myocardial infarction Other Notes: HTN; AFib # of Emergency department Answers: 1-2 visits in the last 6 months Score: 13 Date Signed: 09/15/2018 02:22 PM Electronically Signed By:Pascale Garcia RN
--- NOTE | 2018-09-15 14:26 | ASMTDCNOTE ---
Case Management Discharge Discharge Order Complete? Answers: Yes Patient to Obtain Answers: via Family Medications Transportation Arranged Answers: Family/Friends Faxed Final Orders Answers: Yes Notes: tp [facility] Agency/Facility Transfer Answers: Yes Notes: to [facility] Report Printed & Faxed to Receiving Agency Discharge Comments Notes: 09/15/2018 Case Management Note Faxed final orders to [facility]. Notified of d/c over the phone. Case Management d/c poc: [facility] RN and addtionally follow up as directed. Date Signed: 09/15/2018 02:26 PM Electronically Signed By:Pascale Garcia RN
--- NOTE | 2018-09-15 14:27 | ASDISCHSUM ---
Discharge Information Plan Status:Home with Home Health Medically Cleared to Leave:09/15/2018 Discharge Date:09/15/2018 D/C Disposition:Home Health Service ADT D/C Disposition:Home, Routine, Self-Care Projected Discharge Date:09/10/2018 11:00 AM Transportation at D/C: Discharge Delay Reason: Follow-Up Date:09/10/2018 11:00 AM Discharge Slot: Final Diagnosis: Placement Information Referral Type:*Home Health Care Services Referral ID:[id number] Provider Name:[facility] Address 1:[address] [facility] [address] Address 2: City:[place] Selection Factors: State:[place] Patient Contact Information Contact Name:EDSON Relationship:Son Address:[address] Work Phone: City:[place] Alternate Phone: [facility]/Zip Code:[place] [address] Email: Financial Information Financial Class:Medicare Primary Plan Desc:MEDICARE INPATIENT Primary Plan Number:[id number] Secondary Plan Desc:[employer] [facility] Secondary Plan Number:[id number] Assessment Information LACE LACE Length of stay for Answers: 4-6 days current admission Acuity / Level of Answers: Yes Care: Did the patient have an inpatient admission? Comorbidities - select Answers: Coronary Artery Disease all that apply Diabetes (uncontrolled or controlled) Previous myocardial infarction Other Notes: HTN; AFib # of Emergency department Answers: 1-2 visits in the last 6 months Score: 13 Date Signed: 09/15/2018 02:22 PM Electronically Signed By:Pascale Garcia RN [facility] CM Progress Note CM Note CM Note Notes: Pt is a 60 y/o male who presented to the ED with a hypertensive emergency. He has a medically significant hx of diabetes, CAD s/p 3 stents, renal mass s/p resection with complications. He is originally from [place], but has been living with his son, [id number] and grandchildren since having a heart attack when he was visiting last June. He reports being able to get around independently in the home and having his [id number] assistance with transportation, "she takes good care of me". PT is recommedning home care. A referral was made to [facility]. CM will follow if additional CM needs are identified. D/C Plan: [facility] for PT/OT Date Signed: 09/09/2018 03:11 PM Electronically Signed By:Acacia Conner [facility] CM Progress Note CM Note CM Note Notes: 09/12/2018 Case Management Note Discussed pt during rounds this morning. Pt is positive for CDiff. Faxed updates to [facility]. Case Management d/c poc: [facility] RN PT Case Management to follow. Date Signed: 09/12/2018 03:04 PM Electronically Signed By:Pascale Garcia RN Case Management Discharge Plan Note Case Management Discharge Discharge Order Complete? Answers: Yes Patient to Obtain Answers: via Family Medications Transportation Arranged Answers: Family/Friends Faxed Final Orders Answers: Yes Notes: tp [facility] Agency/Facility Transfer Answers: Yes Notes: to [facility] Report Printed & Faxed to Receiving Agency Discharge Comments Notes: 09/15/2018 Case Management Note Faxed final orders to [facility]. Notified of d/c over the phone. Case Management d/c poc: [facility] RN and addtionally follow up as directed. Date Signed: 09/15/2018 02:26 PM Electronically Signed By:Pascale Garcia RN Intervention Information Intervention Type:*SOFIA-Signed Date of Service:09/09/2018 10:46 AM Patient Type:Observation Staff Member:Olivia Moore Hours: Discipline: Severity: Comment:
[2018-09-15 16:28] VITALS: BP 176/84
== END 2018-09-15 16:32 | disposition home health service (06) | DRG 305 ==
LOC: F2W 18:20 → OBSVTOIN 09-09 16:03
PROVIDERS: ADMIT Internal Medicine; ATTEND Internal Medicine
DX: I15.2 Hypertension secondary to endocrine disorders (principal); I16.0 Hypertensive urgency; J20.8 Acute bronchitis due to other specified organisms; D35.01 Benign neoplasm of right adrenal gland; E87.6 Hypokalemia; A04.71 Enterocolitis due to Clostridium difficile, recurrent; I25.10 Atherosclerotic heart disease of native coronary artery without angina pectoris; Z95.5 Presence of coronary angioplasty implant and graft; I25.2 Old myocardial infarction; E78.5 Hyperlipidemia, unspecified; D62 Acute posthemorrhagic anemia; Z85.528 Personal history of other malignant neoplasm of kidney; Z90.5 Acquired absence of kidney; E11.9 Type 2 diabetes mellitus without complications; Z79.4 Long term (current) use of insulin
CPT/HCPCS: 84244-90; 84484-PO; 96374; 97116-GP; 97161-GP; 97165-GO; 97530-GO; 97530-GP; 97535-GO; G0378; G8978-GP-CJ; G8979-GP-CI; G8987-GO-CI; G8988-GO-CI; G8989-GO-CI; J0360; J1650; J1940; J3475; Q9957; Q9967